=== PATIENT | female | born 1945 | race Caucasian/White ===

== ENCOUNTER 2018-03-12 17:14 | Inpatient (IN) | payer OTHER ==
[~2018-03-12] VITALS: Ht 154.9 cm; Wt 93.9 kg
--- NOTE | ~2018-03-12 | EKG ---
[address] [address] ELECTROCARDIOGRAM REPORT Name: GABRIEL YUSUF Room #: 463- ADM IN M.R.#: [id number] Admission: 03/12/18 Attend Phys: James Cramer MD Discharge: Date of : 49 Report #: [id number] THIS REPORT FOR: //name// [facility] Test Date: 2018-03-13 Test Time: 11:25:03 Pat Name: GABRIEL YUSUF Department: Room: 463 Gender: F Supervisor Communications And Signals: DAHIANA : 1945 Requested By: Dany De La Torre Order Number: [id number] MD: Neo Gould Measurements Intervals [place] Rate: 96 P: UT: QRS: 36 QRSD: 92 T: QT: 475 QTc: 601 Interpretive Statements Atrial fibrillation Borderline low voltage, extremity leads Septal infarct, age indeterminate Nonspecific T abnormalities, lateral leads Prolonged QT interval Compared to ECG 02/01/2015 06:50:36 T-wave abnormality now present Prolonged QT interval now present Electronically Signed On 03-15-2018 8:06:20 CDT by Neo Gould [email or web address] <ELECTRONICALLY SIGNED> By: Neo Gould MD, [facility] 03/15/18 0806 1125 1125 Neo Gould MD, [facility] /EPI
--- NOTE | ~2018-03-12 | O ---
[facility] [place] [address] OPERATIVE REPORT Name: GABRIEL YUSUF Room #: 463-P ADM IN M.R.#: [id number] Admission: 03/12/18 Attend Phys: James Cramer MD Discharge: Date of : 49 Report #: [id number] THIS REPORT FOR: //name// CC: James Addison DATE OF SERVICE: 03/13/2018 SERVICE: Orthopedics. FACILITY: [facility]. SURGEON: Dany De La Torre MD. FOOD CHECKER: Patsy Cloud NP. INDICATION: Fracture reduction assistance and implant positioning assistance. PREOPERATIVE DIAGNOSES: Closed right hip intertrochanteric fracture. POSTOPERATIVE DIAGNOSIS: Closed right hip intertrochanteric fracture. PROCEDURE: IM nail treatment of right intertrochanteric hip fracture. COMPLICATIONS: None. DRAINS: None. SPECIMENS: None. ESTIMATED BLOOD LOSS: 10 mL. IMPLANTS: [employer] 10 x 36 mm InterTan IM nail with 90 interlocking screws proximally. HISTORY: The patient is a 72-year-old female who fell and sustained an intertrochanteric fracture on the right hip. She was admitted to [facility] where she was indicated for surgery. Risks, benefits, alternatives, and indication for surgery were discussed with her in detail preoperatively. Risks include but not limited to pain, bleeding, infection, injury to nerves or blood vessels, malunion, nonunion, need for further surgery including revision as well as complications related to anesthesia such as stroke, heart attack, pulmonary complications, thromboembolic disease and . Despite these risks, she understood the risks with nonsurgical treatment and elected to proceed with surgery. [facility] [address] [place] [address] OPERATIVE REPORT Name: GABRIEL YUSUF Room #: 463-P ADM IN M.R.#: [id number] Admission: 03/12/18 Attend Phys: James Cramer MD Discharge: Date of : 49 Report #: [id number] PROCEDURE IN DETAIL: After right lower extremity was correctly identified as the operative extremity in the preoperative holding area, the patient was taken to the operating room where general endotracheal anesthesia was induced without complication. She was transferred on the fracture table. She was padded appropriately. Prophylactic antibiotics with 3 grams Ancef were administered at appropriate time. Right leg was prepped and draped in standard sterile fashion. Time-out procedure was performed. C-arm had been utilized to assist in the fracture reduction, which was performed by abduction, traction, adduction and internal rotation. An incision was made on the lateral thigh proximal to the trochanter. Dissection was taken down to the tip of the trochanter where a guidepin was placed in freehand technique in the appropriate anterior position localizing on both AP and lateral views. The pin was advanced. I then selected a small diameter entry reamer because she was noted to have a significantly narrow femoral shaft. I was able to sequentially ream up to an 11.5-mm reamer allowing for the 10-mm InterTan nail and then, I used the regular 17-mm channel reamer to obtain access to the proximal femur over the guidewire. X-rays were used to confirm that the guidepin was located within the femoral canal distally and a 36 cm x 10 mm nail was selected was then advanced in a typical fashion into the appropriate level and then, the outrigger was utilized to place the InterTan interlocking screws through the nail into the femoral head. Multiple planes of x-ray were used to ensure that the screws were placed appropriately within the femoral head portion of the fracture while maintaining an appropriate tip apex distance. After this was completed, final x-rays were taken. The final construct was locked. Wounds were thoroughly irrigated after the outrigger was removed. The deep layer was closed with 0 Vicryl suture. Skin was closed with 2-0 Vicryl followed by skin latasha. Sterile dressing was applied. The patient was awakened from anesthesia and taken to recovery room, transferred in stable condition. There were no complications. All counts were recorded as correct. <ELECTRONICALLY SIGNED> By: Dany De La Torre MD 03/13/18 1713 1323 1426 Dany De La Torre MD /nt
[~2018-03-12 17:14] MED LIST: ACETAMINOPHEN325 M1 PO; ALLOPURINOL 30300 M2 PO; ALPRAZOLAM 0.50.5 MG PO; ASPIRIN EC81 M1 PO; ASPIRIN325 PO; AVELOX 400 MG400 M1 PO; C-1000 WITH R1000 MG PO; CALCIUM 600 +1 EAC1 PO; CHLORZOXAZONE500 MG PO; COUMADIN PO; DILTIAZEM 24HR240 M2 PO; DILTIAZEM 24HR240 MG PO; DYAZIDE 37.5-21 EACH PO; FISH OIL 1,001000 M1 PO; FISH OIL 1,001000 M2 PO; FISH OIL 1,2001 EAC4 PO; FOSAMAX 70 MG T70 MG PO; GLUCOSAMINE HC500 MG PO; HYDROCODONE-AP1 EAC6 PO; LANOXIN 0.120.125 M1 PO; LISINOPRIL10 MG PO; LOPERAMIDE 2 MG2 M1 PO; LOPRESSOR100 MG PO; LOPRESSOR25 PO; MOBIC15 MG PO; MUCINEX TA600 MG/TA1 PO; PACERONE 200 M200 M1 PO; PLAVIX 75 MG TA75 MG PO; PRAVACHOL40 MG PO; TROSPIUM CHLORI20 MG PO; VESANOID10 MG; VESICARE10 M1 PO; VITAMIN C + RO500 MG PO; XANAX 0.25 MG0.25 MG PO; XANAX XR0.5 MG PO
[2018-03-12 17:15] VITALS: BP 105/87
[2018-03-12] MEDS ORDERED: ELIQUIS2.5 MG PO (17:17)
[2018-03-12] MEDS ORDERED: ELIQUIS5 MG PO (17:25)
[2018-03-12 18:59] LABS: ABSOLUTE NEUTROPHILS 16.1 thou/uL (1.4-8.2); BASOPHILS 0.3 % (0.0-2.0); EOSINOPHILS 0.2 % (0.0-3.0); HEMATOCRIT 37.7 % (37.0-47.0); HEMOGLOBIN 12.6 gm/dL (12.0-15.0); LYMPHOCYTES 6.5 % (24.0-44.0); MCH 32.3 pg (26.0-34.0); MCHC 33.4 g/dL (28.0-37.0); MCV 96.5 fL (80.0-100.0); MONOCYTES 3.5 % (1.0-8.0); PLATELET COUNT 199 thou/uL (150-400); POLYS 89.5 % (36.0-66.0); RBC 3.91 mil/uL (4.20-5.00); RDW 16.3 % (10.5-14.5)
[2018-03-12] MEDS ORDERED: DEMADEX20 MG PO (19:10)
[2018-03-12 19:13] LABS: APTT 28.5 Seconds (24.5-32.8); INR 1.1; PROTIME 11.4 Seconds (9.3-11.4)
[2018-03-12 19:14] LABS: CALCIUM 9.2 mg/dL (8.5-10.1); CREATININE 1.1 mg/dL (0.6-1.0); POTASSIUM 3.5 mmol/L (3.5-5.1)
[2018-03-12 19:18] LABS: ALBUMIN 3.9 g/dL (3.4-5.0); TOTAL BILIRUBIN 0.7 mg/dL (<0.1-1.0)
[2018-03-12 19:21] VITALS: BP 109/52
[2018-03-12 20:08] VITALS: BP 135/70
[2018-03-13] VITALS (9 sets, daily range): BP systolic 109–136; BP diastolic 44–78
[2018-03-13 06:29] LABS: HEMOGLOBIN 11.4 gm/dL (12.0-15.0); MCHC 34.5 g/dL (28.0-37.0); MCV 95.4 fL (80.0-100.0); RBC 3.45 mil/uL (4.20-5.00); RDW 16.2 % (10.5-14.5); WBC 10.1 thou/uL (4.0-11.0)
[2018-03-13 06:39] LABS: CALCIUM 9.2 mg/dL (8.5-10.1); POTASSIUM 3.3 mmol/L (3.5-5.1)
[2018-03-14 00:04] VITALS: BP 115/55
[2018-03-14 04:46] LABS: CALCIUM 8.5 mg/dL (8.5-10.1); POTASSIUM 3.8 mmol/L (3.5-5.1)
[2018-03-14 04:50] VITALS: BP 124/59
[2018-03-14 05:25] LABS: HEMATOCRIT 27.8 % (37.0-47.0); HEMOGLOBIN 9.5 gm/dL (12.0-15.0); MCH 32.6 pg (26.0-34.0); RBC 2.9 mil/uL (4.20-5.00); RDW 15.9 % (10.5-14.5); WBC 12.9 thou/uL (4.0-11.0)
[2018-03-14 08:30] VITALS: BP 146/80
[2018-03-14 12:15] VITALS: BP 146/80
[2018-03-14 15:15] VITALS: BP 115/60
[2018-03-14 20:10] VITALS: BP 121/58
[2018-03-15 04:30] VITALS: BP 118/75
[2018-03-15 06:25] LABS: HEMATOCRIT 37.7 % (37.0-47.0); MCH 27.5 pg (26.0-34.0); MCHC 31.8 g/dL (28.0-37.0); RBC 4.37 mil/uL (4.20-5.00); RDW 16.4 % (10.5-14.5); WBC 6.2 thou/uL (4.0-11.0)
[2018-03-15 06:45] LABS: CALCIUM 8.9 mg/dL (8.5-10.1); CREATININE 0.9 mg/dL (0.6-1.0); POTASSIUM 4.2 mmol/L (3.5-5.1)
[2018-03-15 06:47] LABS: MCV 86.4 fL (80.0-100.0)
[2018-03-15 08:00] VITALS: BP 117/71
[2018-03-15 16:00] VITALS: BP 95/55
[2018-03-15 16:14] VITALS: BP 117/71
[2018-03-15 20:00] VITALS: BP 103/58
[2018-03-16 04:00] VITALS: BP 119/58
[2018-03-16 06:22] LABS: HEMATOCRIT 26.9 % (37.0-47.0); MCH 32.9 pg (26.0-34.0); MCHC 34.4 g/dL (28.0-37.0); RBC 2.81 mil/uL (4.20-5.00); RDW 16.2 % (10.5-14.5); WBC 10.5 thou/uL (4.0-11.0)
[2018-03-16 06:26] LABS: HEMOGLOBIN 9.2 gm/dL (12.0-15.0)
[2018-03-16 06:27] LABS: MCV 95.5 fL (80.0-100.0)
[2018-03-16 08:25] VITALS: BP 122/66
[2018-03-16 09:59] VITALS: BP 122/66
[2018-03-16] MEDS ORDERED: PACERONE 200 M200 M1 PO (12:40)
[2018-03-16] MEDS ORDERED: XARELTO10 MG PO (12:40)
[2018-03-16] MEDS ORDERED: PERCOCET PO (14:06)
[2018-03-17 06:08] LABS: GLYCOHEMOGLOBIN (HGB A1C) 5.2 % (4.8-5.6)
== END 2018-03-16 16:30 | DRG 480 ==
LOC: ER 17:14 → EROBS 18:06 → 4W 18:06
PROVIDERS: Emergency Medicine; Hospitalist; Nurse Practitioner Family; Orthopaedic Surgery Sports Medicine
PROC: 0QS606Z Reposition Right Upper Femur with Intramedullary Internal Fixation Device, Open Approach (ICD-10-PCS; principal; 2018-03-13)
DX: S72.141A Displaced intertrochanteric fracture of right femur, initial encounter for closed fracture (principal); E43 Unspecified severe protein-calorie malnutrition; D62 Acute posthemorrhagic anemia; Z96.1 Presence of intraocular lens; I73.9 Peripheral vascular disease, unspecified; I50.9 Heart failure, unspecified; I11.0 Hypertensive heart disease with heart failure; E78.5 Hyperlipidemia, unspecified; R26.9 Unspecified abnormalities of gait and mobility; I48.2 Chronic atrial fibrillation; G47.33 Obstructive sleep apnea (adult) (pediatric); R73.9 Hyperglycemia, unspecified; I25.10 Atherosclerotic heart disease of native coronary artery without angina pectoris; E66.9 Obesity, unspecified; W01.0XXA Fall on same level from slipping, tripping and stumbling without subsequent striking against object, initial encounter; I25.2 Old myocardial infarction; Z86.14 Personal history of Methicillin resistant Staphylococcus aureus infection; Z68.39 Body mass index [BMI] 39.0-39.9, adult; Z95.820 Peripheral vascular angioplasty status with implants and grafts; Z87.891 Personal history of nicotine dependence; Z85.828 Personal history of other malignant neoplasm of skin; Z98.42 Cataract extraction status, left eye; Z95.5 Presence of coronary angioplasty implant and graft; Z98.41 Cataract extraction status, right eye; Y93.89 Activity, other specified; Z95.810 Presence of automatic (implantable) cardiac defibrillator; Y92.59 Other trade areas as the place of occurrence of the external cause; Y99.8 Other external cause status; Z79.01 Long term (current) use of anticoagulants; Z79.899 Other long term (current) drug therapy; Z88.2 Allergy status to sulfonamides
CPT/HCPCS: 10040; 50010; 50101; 50386; 51412; 51538; 55445; 56525; 57092; 62110; 62900; 70005

== ENCOUNTER 2018-03-31 11:59 | Inpatient (IN) | payer OTHER ==
[~2018-03-31] VITALS: Ht 154.9 cm; Wt 108.1 kg
--- NOTE | ~2018-03-31 | HC ---
[facility] [place] [address] CONSULTATION Name: GABRIEL YUSUF Room #: 204-P ADM IN M.R.#: [id number] Admission: 03/31/18 Attend Phys: Fay Poon MD Discharge: Date of : 47 Report #: [id number] THIS REPORT FOR: //name// CC: Kody Addison DATE OF SERVICE: 04/01/2018 REASON FOR CONSULTATION: Venous ulcers, bilateral lower extremities. HISTORY OF PRESENT ILLNESS: This is a 72-year-old female patient with a history of diabetes and ulcerations to both lower extremities. She is admitted with increasing shortness of breath and underlying history of congestive heart failure. She states she has had pain in her legs with swelling and the ulcerations, she states she has had ulcerations in the past, but typically she is just getting pain, redness and swelling. PAST MEDICAL HISTORY: Positive for history of atrial fibrillation with a history of rapid ventricular response, closed right hip fracture, congestive heart failure, diabetes, history of a wide complex tachycardia. ALLERGIES: SULFA. MEDICATIONS: Include amiodarone, oxycodone, rivaroxaban, metoprolol, ascorbic acid, alprazolam, loperamide, meloxicam, glucosamine, alendronate, torsemide, aspirin. SOCIAL HISTORY: The patient is a previous smoker, having quit. She admits to occasional alcohol use. FAMILY HISTORY: Noncontributory. REVIEW OF SYSTEMS: CONSTITUTIONAL: The patient does complain of fever and some weakness. Denies weight loss. ENT: The patient denies earache, nasal drainage or sore throat. EYES: The patient denies visual changes, redness or drainage. CARDIOVASCULAR: The patient denies chest pain or palpitations. Does complain of some shortness of breath and some orthopnea. PULMONARY: The patient does complain of shortness of breath, orthopnea. Denies cough or sputum production. GASTROINTESTINAL: The patient denies nausea, vomiting, diarrhea. Genitourinary: The patient denies frequency or urgency of urination. Denies dysuria. ORTHOPEDIC: The patient does note pain and swelling and drainage from her legs. [facility] [address] [place] [address] CONSULTATION Name: GABRIEL YUSUF Room #: 204-P [facility] IN [facility].#: [id number] Admission: 03/31/18 Attend Phys: Fay Poon MD Discharge: Date of : 49 Report #: [id number] PSYCHIATRIC: The patient does complain of some anxiety and depression. Other systems in a 14-point review of systems are negative. PHYSICAL EXAMINATION: VITAL SIGNS: At this time include pulse 117, respiratory rate 20, blood pressure 117/43, temperature 98.1. GENERAL: This is a chronically ill-appearing female patient who appears to be in no distress. HEENT: Head is normocephalic. Nose and throat clear. NECK: Supple. LUNGS: Diminished. HEART: Regular, without murmur. ABDOMEN: Distended, soft, nontender. EXTREMITIES: Lower extremities demonstrate moderate erythema. There is ulceration on the left pretibial region and small areas on the right. She has palpable distal pulses. NEUROLOGIC: The patient is alert and oriented and appropriate. She is sitting upright, talking to a family member, eating [employer]. LABORATORY DATA: Includes sodium 144, potassium is 3.8, CO2 is 27, BUN 31, creatinine 1.0. Glucose 98. Phosphorus 1.9. Lactic acid is 2.3, proBNP is 4645. White blood cell count 10.3 with hemoglobin of 8.0. CLINICAL IMPRESSION: 1. Venous type ulcerations, bilateral lower extremities, left greater than right. 2. Bilateral lower extremity due to volume overload and history of congestive heart failure and some venous stasis dermatitis. 3. History of congestive heart failure. 4. Diabetes mellitus. RECOMMENDATIONS: At this point in time, we will recommend topical Silvadene, morphine compound with Xeroform gauze, Kerlix and Nico wrap for mild compression. I would think that her consumption of barbecue is probably counterproductive with regard to her underlying congestive heart failure and lower extremity edema. We will recommend elevation of the lower extremities as well. Appropriate nutritional support, likely a low sodium diet would be to her benefit. I appreciate being asked to see her in consultation. <ELECTRONICALLY SIGNED> By: Herman Nicholson MD 04/02/18 1552 2131 0315 Herman Nicholson MD /nt
--- NOTE | ~2018-03-31 | PATH ---
[facility] [address] [place] [address] PATHOLOGY RPT PROCEDURE Name: DEANNA YUSUF Room #: 204-P DIS IN M.R.#: [id number] Admission: 03/31/18 Date of : 49 Discharge: 04/08/18 Report #: [id number] Path Case #: [id number] [facility] Accession Number: [id number] . 01 Material submitted: . GASTRITIS R/O H PYLORI . 01 Clinical history: . Pre-OP DX: GI bleed, anemia, dysphagia Post-OP DX: Gastritis, dysphagia, gastroparesis . 02 Diagnosis: Gastric mucosa, gastritis, rule out H. pylori, endoscopic biopsy: - Moderate reactive gastropathy with focal intestinal metaplasia. - Negative for atrophy or dysplasia. - Negative for Helicobacter pylori (properly-controlled immunohistochemical stain performed). . (IUV:mml; 04/07/18) [facility]/04/07/2018 . 02 Electronically signed: . Aide Grande MD, Pathologist NPI- [id number] . 01 Gross description: . Received in formalin labeled "Yusuf, Deanna, gastritis, rule out H. pylori," are 5 segments of mcnamara soft tissue measuring 0.9 x 0.8 x 0.2 cm in aggregate dimensions and ranging from 0.2 to 0.5 cm in maximum dimension. The specimen is submitted entirely in cassette A1. (TSD; 04/06/2018) TOB/TOB . 02 Pathologist provided ICD-10: K31.9 . 02 CPT . 215975, H47918 Performed at: [address], [place] [id number] MD Raúl Duncan MD Phone: [phone] Performed at: [address] [id number] MD Aide Grande MD Phone: [phone]
--- NOTE | ~2018-03-31 | 2DMMODE ---
[facility] [address] [address] 2 D/M-MODE ECHOCARDIOGRAM Name: MADELINGABRIEL GAN Room #: 204-P ADM IN M.R.#: [id number] Admission: 03/31/18 Attend Phys: Fay Poon MD Discharge: Date of : 49 Date of Service: 04/01/18 1550 Report #: [id number] THIS REPORT FOR: //name// APPROVED REPORT Study performed: 04/01/2018 10:32:51 EXAM: Limited 2D, Doppler, and color-flow Echocardiogram Patient Location: Echo lab Room #: 204 Status: routine BSA: 2.03 HR: 113 bpm BP: 127/67 mmHg Rhythm: Atrial Fibrillation Other Information Study Quality: Adequate Indications Congestive Heart Failure Atrial Fibrillation 2D Dimensions IVC: 28.00 mm Aortic Valve AoV Peak Nabor.: 1.69 m/s AO Peak Gr.: 11.46 mmHg LVOT Max P.41 mmHg LVOT Max V: 1.16 m/s Tricuspid Valve TR Peak Nabor.: 2.93 m/s RAP Estimate: 15.00 mmHg TR Peak Gr.: 34.23 mmHg PA Pressure: 49.00 mmHg Left Ventricle The left ventricle is normal size. Left ventricular systolic function is mildly decreased. LVEF is 45-50%. Right Ventricle The right ventricle is normal size. The right ventricular systolic function is normal. Atria Left atrium is dilated. The right atrium size is normal. [facility] [address] [place] [address] 2 D/M-MODE ECHOCARDIOGRAM Name: GABRIEL YUSUF Room #: 204-P ADM IN M.R.#: [id number] Admission: 03/31/18 Attend Phys: Fay Poon MD Discharge: Date of : 49 Date of Service: 04/01/18 1550 Report #: [id number] Aortic Valve The aortic valve is mildly calcified Trace aortic regurgitation. There is no aortic valvular stenosis. Mitral Valve Mitral valve leaflets are thickened. Mild mitral annular calcification. Moderate mitral regurgitation. Tricuspid Valve The tricuspid valve is normal in structure. Moderate tricuspid regurgitation. Estimated PAP of 50 mmHg Pulmonic Valve The pulmonary valve is normal in structure. There is no pulmonic valvular regurgitation. Great Vessels IVC is dilated and collapses <50% with inspiration. Pericardium No pericardial effusion. <Conclusion> Limited/abbreviated study Left ventricular systolic function is mildly decreased. LVEF is 45-50%. Left atrium is dilated. The aortic valve is mildly calcified. No aortic valvular stenosis, mild insufficiency. Mitral valve leaflets are thickened. Mild mitral annular calcification. Moderate mitral insufficiency Moderate tricuspid regurgitation. Estimated pulmonary artery pressure of 50 mmHg No pericardial effusion. <ELECTRONICALLY SIGNED> By: Neo Gould MD, [facility] 04/01/18 1550 1550 1550 Neo Gould MD, [facility] /INF
--- NOTE | ~2018-03-31 | P ---
[facility] [place] [address] PROCEDURE REPORT Name: GABRIEL YUSUF Room #: 204-P [facility] IN M.R.#: [id number] Admission: 03/31/18 Attend Phys: Fay Poon MD Discharge: 04/08/18 Date of : 47 Report #: [id number] THIS REPORT FOR: //name// CC: ENID Santana BRIEF HISTORY: The patient is a 72-year-old woman with multiple medical problems including diabetes and atrial fibrillation on blood thinners, who presented with multiple complaints including melanotic stools and anemia with a hemoglobin in the 7 range and normal MCV. It is noted she did have recent surgery for hip. In addition, she also has a history of dysphagia with previous dilation reports, dysphagia once. PREOPERATIVE DIAGNOSES: 1. Melena. 2. Dysphagia. POSTOPERATIVE DIAGNOSES: 1. Moderate diffuse gastritis without evidence of hemorrhage. 2. Dysphagia without obvious ring or stricture identified. 3. Small amount of retained solid consistent with gastroparesis. MEDICATION: Deep sedation with propofol per anesthesia. SPECIMEN: Biopsies of gastritis. ESTIMATED BLOOD LOSS: 3 mL. PROCEDURE: EGD with biopsy and Lopez dilation. FINDINGS: Prior to propofol sedation, the procedure of upper endoscopy was discussed with the patient as well as potential risks and its complications. She indicates she understands and desires to proceed. DESCRIPTION OF PROCEDURE: With the patient in lateral decubitus position, the Olympus video endoscope was inserted in the cervical esophagus under direct vision without difficulty. Examination of this organ to its entire length revealed normal esophageal mucosa down to the squamocolumnar junction. The squamocolumnar junction was inspected and noted to be unremarkable. There was no evidence of ulcers, erosions, bleeding lesions, or significant hiatus hernia. Also, varices were not seen. The scope was advanced in the stomach, was examined on end view as well as retroflexed views. Upon entering the stomach, she was noted to have some retained vegetable type material in the fundus of the [facility] [address] [place] [address] PROCEDURE REPORT Name: GABRIEL YUSUF Room #: 204-P [facility] IN M.R.#: [id number] Admission: 03/31/18 Attend Phys: Fay Poon MD Discharge: 04/08/18 Date of : 49 Report #: [id number] stomach. It was a relatively small amount. On end view as well as retroflexed views, there was noted to be gastritis with linear striations ____ in the antrum. However, no ulcers or erosions were seen. No blood was seen. No bleeding lesions were seen. Upon retroflexion, no mass lesions were seen. The pylorus was normal. Duodenal bulb was normal. Duodenal sweep down to ligament of Treitz was normal. There was no evidence of bleeding lesions or arteriovenous malformations. At that point, the scope was slowly withdrawn and careful circumferential views confirmed the above findings. The patient tolerated the procedure well. DISPOSITION: The patient with recent black stools and anemia without evidence of actively bleeding lesion. She had been on Pradaxa and is now off of the Pradaxa. I do not see a source for gastrointestinal bleeding. As for her anemia, it is noted that she did have a recent hip surgery, which certainly may be a factor. It is noted she did have two stool Hemoccults one of which was positive, one of which was negative. At this point in time, we would continue PPI. It would probably reasonable to continue PPI. Consider resuming anticoagulation. If there is evidence of further bleeding, she may require further evaluation such as bleeding scan or even small bowel capsule study or repeat colonoscopy. <ELECTRONICALLY SIGNED> By: Ovidio Worthington MD 04/09/18 1740 1217 0405 Ovidio Worthington MD /nt
--- NOTE | ~2018-03-31 | HC ---
[facility] [place] [address] CONSULTATION Name: GABRIEL YUSUF Room #: 204-P ADM IN M.R.#: [id number] Admission: 03/31/18 Attend Phys: Fay Poon MD Discharge: Date of : 49 Report #: [id number] THIS REPORT FOR: //name// CC: Kody Addison TYPE OF REPORT: Pulmonary consultation. REFERRAL PHYSICIAN: Fay Poon M.D. PRIMARY CARE PHYSICIAN: Brittany Argueta M.D. HISTORY OF PRESENT ILLNESS: The patient is a 72-year-old white female who presents to the Emergency Room with progressive dyspnea. She is felt in heart failure. There is also concerns for amiodarone toxicity. A pulmonary consultation was requested. The patient has coronary artery disease with ischemic cardiomyopathy, permanent atrial fibrillation, hypertension and hyperlipidemia. Recently, she fell and sustained a right femur fracture. Few weeks ago, she underwent surgery. For the past 2 weeks, she has been at a facility to gain rehabilitation. She was doing fairly well until 3 days prior to presentation when she had noticed increasing dyspnea. Symptoms worsened along with hypoxia. Saturation was said to be as low as 77%. For that reason, she was brought to the Emergency Room. Her chest x-ray shows mild patchy infiltrates. CT chest angiogram showed no evidence of pulmonary embolus. There was moderate multiple patchy ground glass opacity. The patient otherwise denies any recent febrile illness, chest pain or hemoptysis. She has been on anticoagulation for atrial fibrillation. Hemoglobin currently is 7.1. She also notes increasing lower extremity edema. PAST MEDICAL HISTORY: As mentioned above including coronary artery disease, ischemic cardiomyopathy, permanent atrial fibrillation on chronic anticoagulation, SEYMOUR on CPAP, mild mitral regurgitation, essential hypertension, gout, peripheral artery disease, status post left external iliac artery stent, right femoral stent and mild pulmonary hypertension. PAST SURGICAL HISTORY: As mentioned above. ALLERGIES: SULFA, reactions not specified. HOME MEDICATIONS: List reviewed. This includes torsemide, aspirin, amiodarone [facility] [address] [place] [address] CONSULTATION Name: GABRIEL YUSUF Room #: 204- ADM IN .R.#: [id number] Admission: 03/31/18 Attend Phys: Fay Poon MD Discharge: Date of : 49 Report #: [id number] 200 mg p.o. every day, Pravachol, calcium supplements, Fosamax, glucosamine, Mobic, Imodium, Tylenol, alprazolam and metoprolol. FAMILY HISTORY: Noncontributory. SOCIAL HISTORY: The patient has smoked for many years but quit in 1995. She drinks socially. REVIEW OF SYSTEMS: As mentioned above, otherwise 10-point system review negative. PHYSICAL EXAMINATION: GENERAL: She is awake, alert, in mild distress. She appears mildly dyspneic. VITAL SIGNS: Temperature is 98 degrees Fahrenheit, pulse is 99, respiratory rate is 22, blood pressure is 124/60 mmHg and saturation 96%. HEENT: Normocephalic and atraumatic. NECK: Supple, without lymphadenopathy or thyromegaly. CHEST: Breath sounds are good with few scattered crackles. No wheezes. CARDIOVASCULAR: Irregularly irregular. No murmurs or gallop. Pulses are 2+/4+ bilaterally. ABDOMEN: Soft and nontender. Moderately obese. No masses felt. GENITOURINARY: Deferred. RECTAL: Deferred. EXTREMITIES: A 1-2+ bilateral edema. NEUROLOGICAL: Grossly intact. RADIOLOGICAL DATA: Portable chest x-ray mentioned above. CT chest also as mentioned above showing patchy moderate bilateral ground glass opacities. Cardiomegaly is present. No pulmonary embolus. Echocardiogram showed mildly decreased LV function, ejection fraction 45%, left atrium is dilated, aortic valve mildly calcified, moderate mitral insufficiency, pulmonary artery pressure of 50 mmHg. LABORATORY DATA: BNP is 5000. Lactic acid is 2.3. Procalcitonin 0.99. Smooth muscle antibody was normal. Hepatitis B antibody, so far negative. Electrolytes are normal, creatinine is normal. Creatinine on admission was 1.2. Albumin 2.2. WBC 8600 and hemoglobin is 8.0. Arterial blood gas revealed pH 7.52, pCO2 of 29 and pO2 75 on 5 liters of O2. IMPRESSION: 1. Bilateral patchy infiltrates in this 72-year-old white female. The radiographic appearance on the CT chest likely suggests inflammatory process. Cannot rule out component of heart failure. 2. 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 Radiographic findings along with elevated liver enzymes are suspicious. The patient's amiodarone dose has been lowered to 200 mg. Amiodarone has since been discontinued. [address] [address] CONSULTATION Name: MADELINGABRIELEdvin GAN Room #: 204-P ADM IN M.R.#: [id number] Admission: 03/31/18 Attend Phys: Fay Poon MD Discharge: Date of : 49 Report #: [id number] 3. [id number]-xi-tuxgcnt systolic heart failure. 4. Coronary artery disease. 5. Ischemic cardiomyopathy, ejection fraction 45%. 6. Permanent atrial fibrillation, anticoagulation on hold due to anemia, possible blood loss. 7. Recent right femur fracture, status post surgery. Deep venous thrombosis prophylaxis will be indicated once hemoglobin is stable and no evidence of bleeding. 8. Peripheral artery disease, status post stent placement. 9. Lower extremity wounds due to trauma, currently undergoing wound care. 10. Elevated liver enzymes as mentioned above. GI has been consulted. RECOMMENDATIONS AND DISCUSSION: Agree with plans with diuresis. We will consider proceeding with diagnostic bronchoscopy if the patient does not progress with diuresis or radiograph shows worsening. We discussed the possibility of corticosteroid treatment and possible amiodarone-induced lung toxicity. At this time, she is quite hesitant and wishes deferred treatment. Continue CPAP therapy for SEYMOUR. We would recommend DVT prophylaxis given recent orthopedic surgery. Thank you for the consultation. <ELECTRONICALLY SIGNED> By: James Viera MD 04/03/18 1539 1534 0153 James Viera MD /nt
--- NOTE | ~2018-03-31 | EKG ---
[address] [place] [address] ELECTROCARDIOGRAM REPORT Name: GABRIEL YUSUF Room #: 204-P ADM IN M.R.#: [id number] Admission: 03/31/18 Attend Phys: Fay Poon MD Discharge: Date of : 49 Report #: [id number] THIS REPORT FOR: //name// [facility] ED Test Date: 2018-03-31 Test Time: 12:43:03 Pat Name: GABRIEL YUSUF Department: Room: 204 Gender: F Real Estate Listing Consultant: RENZO : 1945 Requested By: Rachel Nixon Order Number: [id number] MD: Neo Gould Measurements Intervals [place] Rate: 114 P: ME: QRS: 11 QRSD: 76 T: QT: 411 QTc: 567 Interpretive Statements Atrial fibrillation Nonspecific T wave abnormality Prolonged QT interval Compared to ECG 03/13/2018 11:25:03 No significant change was found Electronically Signed On 04-01-2018 16:44:29 CDT by Neo Gould [email or web address] <ELECTRONICALLY SIGNED> By: Neo Gould MD, [facility] 04/01/18 1644 1243 124 Neo Gould MD, [facility] /EPI
[~2018-03-31 11:59] MED LIST changes: +DEMADEX20 MG PO; +ELIQUIS2.5 MG PO; +ELIQUIS5 MG PO; +PERCOCET PO; +XARELTO10 MG PO
[2018-03-31 12:01] VITALS: BP 103/56
[2018-03-31 12:21] LABS: ABSOLUTE NEUTROPHILS 8.9 thou/uL (1.4-8.2); BASOPHILS 0.2 % (0.0-2.0); EOSINOPHILS 1.1 % (0.0-3.0); HEMATOCRIT 21.5 % (37.0-47.0); HEMOGLOBIN 7.1 gm/dL (12.0-15.0); LYMPHOCYTES 19.3 % (24.0-44.0); MCH 31.8 pg (26.0-34.0); MCHC 33.2 g/dL (28.0-37.0); MONOCYTES 4.8 % (1.0-8.0); PLATELET COUNT 238 thou/uL (150-400); POLYS 74.6 % (36.0-66.0); RBC 2.24 mil/uL (4.20-5.00); RDW 17.8 % (10.5-14.5); WBC 11.9 thou/uL (4.0-11.0)
[2018-03-31 12:25] LABS: BE(vivo) 1.2 mmol/L (-2 to +3); HCO3 23.8 mmol/L (22.0-26.0); PCO2 29.6 mmHg (35.0-45.0); pH 7.524 (7.360-7.450); sO2 96.5 % (92.0-98.0)
[2018-03-31 12:30] LABS: ANION GAP 9 mmol/L (7-16); BUN 37 mg/dL (7-18); CHLORIDE 105 mmol/L (98-107); CO2 27 mmol/L (21-32); CREATININE 1.2 mg/dL (0.6-1.0); GLUCOSE 117 mg/dL (74-106); SODIUM 141 mmol/L (136-145)
[2018-03-31 12:42] LABS: TROPONIN-I <0.06 ng/mL (<0.06)
[2018-03-31] MEDS ORDERED: ASPIR 8181 MG PO (13:54)
[2018-03-31 14:02] VITALS: BP 116/54
[2018-03-31 14:05] LABS: URINE BILIRUBIN NEGATIVE (Negative); URINE BLOOD 1+ (Negative); URINE CLARITY CLEAR; URINE COLOR YELLOW; URINE GLUCOSE-RANDOM* NEGATIVE (Negative); URINE KETONES NEGATIVE (Negative); URINE NITRITE-REFLEX NEGATIVE (Negative); URINE PROTEIN (DIPSTICK) NEGATIVE (Negative); URINE SPECIFIC GRAVITY <= 1.005 (1.005-1.035); URINE UROBILINOGEN 0.2 E.U./dl (0.2-1.0)
[2018-03-31 14:06] LABS: URINE LEUKOCYTES-REFLEX 1+ (Negative)
[2018-03-31 14:24] LABS: BACTERIA-REFLEX None Seen /HPF (None Seen); CASTS None Seen /LPF (None Seen); CRYSTALS None Seen /LPF (None Seen); SQUAMOUS >10 Many /LPF (0-3); URINE RBC 3-10 Few /HPF (0-2)
[2018-03-31 15:02] VITALS: BP 122/67
[2018-03-31 15:40] VITALS: BP 127/68
[2018-03-31 18:26] LABS: INR 1.3; PROTIME 12.9 Seconds (9.3-11.4)
[2018-03-31 18:30] LABS: % SATURATION 11 % (20-39); IRON 24 ug/dL (50-170); TIBC 211 ug/dL (250-450)
[2018-03-31 18:33] LABS: ALBUMIN 2.3 g/dL (3.4-5.0); DIRECT BILIRUBIN 0.5 mg/dL (<0.1-0.3); MAGNESIUM 1.9 mg/dL (1.8-2.4); TOTAL BILIRUBIN 1.1 mg/dL (<0.1-1.0); TOTAL PROTEIN 6.6 g/dL (6.4-8.2)
[2018-03-31 21:00] VITALS: BP 123/45; BP 135/74
[2018-04-01 00:43] VITALS: BP 124/70
[2018-04-01 03:11] LABS: HAV IgM AB (ANTI-HAV IgM) Negative (Negative); HEPATITIS B SURFACE AG Negative (Negative); HEPATITIS C VIRUS AB <0.1 (0.0-0.9)
[2018-04-01 03:59] LABS: ABSOLUTE NEUTROPHILS 7.7 thou/uL (1.4-8.2); BASOPHILS 0.3 % (0.0-2.0); EOSINOPHILS 1.4 % (0.0-3.0); HEMATOCRIT 24.9 % (37.0-47.0); LYMPHOCYTES 16.7 % (24.0-44.0); MCH 30.6 pg (26.0-34.0); MCHC 32.3 g/dL (28.0-37.0); MCV 94.9 fL (80.0-100.0); MONOCYTES 6.5 % (1.0-8.0); PLATELET COUNT 249 thou/uL (150-400); POLYS 75.1 % (36.0-66.0); RBC 2.63 mil/uL (4.20-5.00); RDW 18.7 % (10.5-14.5); WBC 10.3 thou/uL (4.0-11.0)
[2018-04-01 04:03] LABS: CALCIUM 8.2 mg/dL (8.5-10.1); MAGNESIUM 2.3 mg/dL (1.8-2.4); POTASSIUM 3.8 mmol/L (3.5-5.1)
[2018-04-01 04:15] VITALS: BP 127/67
[2018-04-01 06:49] LABS: ALBUMIN 2.4 g/dL (3.4-5.0); DIRECT BILIRUBIN 0.7 mg/dL (<0.1-0.3); TOTAL BILIRUBIN 1.4 mg/dL (<0.1-1.0)
[2018-04-01 08:12] LABS: IgG 643 mg/dL (700-1600)
[2018-04-01 09:59] LABS: INR 1.2; PROTIME 12.5 Seconds (9.3-11.4)
[2018-04-01 15:16] VITALS: BP 105/75
[2018-04-01 19:32] VITALS: BP 117/43
[2018-04-02 03:45] VITALS: BP 130/64
[2018-04-02 04:53] LABS: INR 1.2; PROTIME 12.2 Seconds (9.3-11.4)
[2018-04-02 05:11] LABS: CALCIUM 8.1 mg/dL (8.5-10.1); CREATININE 1.1 mg/dL (0.6-1.0); POTASSIUM 3.8 mmol/L (3.5-5.1)
[2018-04-02 05:20] LABS: ALBUMIN 2.2 g/dL (3.4-5.0); DIRECT BILIRUBIN 0.5 mg/dL (<0.1-0.3); TOTAL PROTEIN 6.4 g/dL (6.4-8.2)
[2018-04-02 05:41] LABS: HEMATOCRIT 24.4 % (37.0-47.0); MCH 31.1 pg (26.0-34.0); MCHC 32.8 g/dL (28.0-37.0); MCV 94.9 fL (80.0-100.0); RBC 2.57 mil/uL (4.20-5.00); RDW 18.9 % (10.5-14.5); WBC 8.6 thou/uL (4.0-11.0)
[2018-04-02 08:56] VITALS: BP 133/67
[2018-04-02 12:23] VITALS: BP 124/68
[2018-04-02 13:10] LABS: ANA INTERPRETATION Negative (Negative)
[2018-04-02 14:48] VITALS: BP 124/68
[2018-04-02 15:49] VITALS: BP 136/51
[2018-04-02 20:11] VITALS: BP 131/56
[2018-04-03 03:37] VITALS: BP 134/60; BP 173/69
[2018-04-03 05:10] LABS: HEMATOCRIT 24.1 % (37.0-47.0); HEMOGLOBIN 7.9 gm/dL (12.0-15.0); MCHC 32.8 g/dL (28.0-37.0); MCV 94.5 fL (80.0-100.0); RBC 2.55 mil/uL (4.20-5.00); RDW 18.9 % (10.5-14.5); WBC 7.5 thou/uL (4.0-11.0)
[2018-04-03 05:29] LABS: ALBUMIN 2.1 g/dL (3.4-5.0); CALCIUM 8.2 mg/dL (8.5-10.1); CREATININE 1.1 mg/dL (0.6-1.0); MAGNESIUM 2.4 mg/dL (1.8-2.4); POTASSIUM 3.5 mmol/L (3.5-5.1); TOTAL PROTEIN 6.2 g/dL (6.4-8.2)
[2018-04-03 08:10] VITALS: BP 117/62
[2018-04-03 12:13] VITALS: BP 131/54
[2018-04-03 15:11] VITALS: BP 131/54
[2018-04-03 16:07] VITALS: BP 116/46
[2018-04-03 19:57] VITALS: BP 123/58
[2018-04-04 04:30] VITALS: BP 134/75
[2018-04-04 04:49] LABS: HEMATOCRIT 25.9 % (37.0-47.0); HEMOGLOBIN 8.4 gm/dL (12.0-15.0); MCH 30.8 pg (26.0-34.0); MCHC 32.5 g/dL (28.0-37.0); MCV 94.8 fL (80.0-100.0); RBC 2.73 mil/uL (4.20-5.00); RDW 18.2 % (10.5-14.5); WBC 5.7 thou/uL (4.0-11.0)
[2018-04-04 05:00] LABS: CALCIUM 8.7 mg/dL (8.5-10.1); CREATININE 1.1 mg/dL (0.6-1.0); POTASSIUM 3.8 mmol/L (3.5-5.1)
[2018-04-04 07:54] VITALS: BP 121/56
[2018-04-04 11:43] VITALS: BP 124/48
[2018-04-04 13:46] LABS: ALBUMIN 2.3 g/dL (3.4-5.0); DIRECT BILIRUBIN 0.3 mg/dL (<0.1-0.3); TOTAL BILIRUBIN 0.6 mg/dL (<0.1-1.0); TOTAL PROTEIN 6.7 g/dL (6.4-8.2)
[2018-04-04 16:16] VITALS: BP 110/43
[2018-04-04 20:00] VITALS: BP 114/91
[2018-04-05] VITALS: BP 135/72
[2018-04-05 04:00] VITALS: BP 147/76
[2018-04-05 04:11] LABS: HEMATOCRIT 25.8 % (37.0-47.0); HEMOGLOBIN 8.3 gm/dL (12.0-15.0); MCH 30.1 pg (26.0-34.0); MCHC 32.1 g/dL (28.0-37.0); MCV 93.9 fL (80.0-100.0); RBC 2.74 mil/uL (4.20-5.00); RDW 18.6 % (10.5-14.5); WBC 11.2 thou/uL (4.0-11.0)
[2018-04-05 04:23] LABS: CALCIUM 9.2 mg/dL (8.5-10.1); CREATININE 1.2 mg/dL (0.6-1.0); POTASSIUM 3.6 mmol/L (3.5-5.1)
[2018-04-05 04:29] LABS: ALBUMIN 2.3 g/dL (3.4-5.0); DIRECT BILIRUBIN 0.3 mg/dL (<0.1-0.3); TOTAL BILIRUBIN 0.6 mg/dL (<0.1-1.0); TOTAL PROTEIN 6.5 g/dL (6.4-8.2)
[2018-04-05 07:53] VITALS: BP 127/69
[2018-04-05 11:32] VITALS: BP 127/59
[2018-04-05 16:08] VITALS: BP 136/61
[2018-04-05 20:12] VITALS: BP 126/62
[2018-04-06 04:43] LABS: ABSOLUTE NEUTROPHILS 8.7 thou/uL (1.4-8.2); BASOPHILS 0.2 % (0.0-2.0); HEMATOCRIT 26.5 % (37.0-47.0); HEMOGLOBIN 8.6 gm/dL (12.0-15.0); LYMPHOCYTES 7.2 % (24.0-44.0); MCH 30.4 pg (26.0-34.0); MCHC 32.5 g/dL (28.0-37.0); MCV 93.6 fL (80.0-100.0); MONOCYTES 2.4 % (1.0-8.0); PLATELET COUNT 263 thou/uL (150-400); POLYS 90.2 % (36.0-66.0); RBC 2.83 mil/uL (4.20-5.00); RDW 18.2 % (10.5-14.5); WBC 9.7 thou/uL (4.0-11.0)
[2018-04-06 04:45] VITALS: BP 147/69
[2018-04-06 05:01] LABS: CALCIUM 9.2 mg/dL (8.5-10.1); CREATININE 1.2 mg/dL (0.6-1.0); POTASSIUM 3.8 mmol/L (3.5-5.1)
[2018-04-06 05:16] LABS: ALBUMIN 2.5 g/dL (3.4-5.0); DIRECT BILIRUBIN 0.3 mg/dL (<0.1-0.3); TOTAL BILIRUBIN 0.5 mg/dL (<0.1-1.0); TOTAL PROTEIN 6.8 g/dL (6.4-8.2)
[2018-04-06 07:49] VITALS: BP 139/81
[2018-04-06 13:00] VITALS: BP 131/70
[2018-04-06 20:45] VITALS: BP 132/72
[2018-04-07 04:35] VITALS: BP 130/59
[2018-04-07 05:24] LABS: HEMATOCRIT 26.3 % (37.0-47.0); HEMOGLOBIN 8.7 gm/dL (12.0-15.0); MCHC 32.8 g/dL (28.0-37.0); MCV 94.3 fL (80.0-100.0); RBC 2.79 mil/uL (4.20-5.00); RDW 18.1 % (10.5-14.5)
[2018-04-07 05:47] LABS: ALBUMIN 2.5 g/dL (3.4-5.0); CALCIUM 8.7 mg/dL (8.5-10.1); CREATININE 1.3 mg/dL (0.6-1.0); PHOSPHORUS 4.1 mg/dL (2.5-4.9); POTASSIUM 3.3 mmol/L (3.5-5.1)
[2018-04-07 07:20] VITALS: BP 129/55
[2018-04-07 13:15] VITALS: BP 127/69
[2018-04-07 15:45] VITALS: BP 129/58
[2018-04-08 03:55] VITALS: BP 144/81
[2018-04-08 04:01] LABS: ALBUMIN 2.6 g/dL (3.4-5.0); CALCIUM 8.6 mg/dL (8.5-10.1); CREATININE 1.3 mg/dL (0.6-1.0); PHOSPHORUS 4.6 mg/dL (2.5-4.9); POTASSIUM 3.4 mmol/L (3.5-5.1)
[2018-04-08 04:04] LABS: ALBUMIN 2.6 g/dL (3.4-5.0); DIRECT BILIRUBIN 0.3 mg/dL (<0.1-0.3); TOTAL BILIRUBIN 0.6 mg/dL (<0.1-1.0); TOTAL PROTEIN 6.2 g/dL (6.4-8.2)
[2018-04-08 04:08] LABS: HEMATOCRIT 27.3 % (37.0-47.0); HEMOGLOBIN 8.9 gm/dL (12.0-15.0); MCH 30.9 pg (26.0-34.0); MCHC 32.8 g/dL (28.0-37.0); MCV 94.1 fL (80.0-100.0); RBC 2.9 mil/uL (4.20-5.00); RDW 18.4 % (10.5-14.5); WBC 9.1 thou/uL (4.0-11.0)
[2018-04-08] MEDS ORDERED: LOPRESSOR50 PO (08:38)
[2018-04-08] MEDS ORDERED: CARDIZEM CD 18180 M3 PO (08:38)
[2018-04-08] MEDS ORDERED: CEFUROXIME250 MG PO (08:38)
[2018-04-08] MEDS ORDERED: DEMADEX 2020 MG/1 TA PO (08:38)
[2018-04-08] MEDS ORDERED: PREDNISONE 20 M20 M1 PO (08:39)
[2018-04-08] MEDS ORDERED: NOVOLOG100 UNIT/1 SUBQ (08:39)
[2018-04-08] MEDS ORDERED: COLACE 100 MG100 MG PO (08:39)
[2018-04-08] MEDS ORDERED: XARELTO15 MG PO ×2 (08:40→08:41)
[2018-04-08 08:41] VITALS: BP 122/69
[2018-04-08 09:06] VITALS: BP 122/69
== END 2018-04-08 14:00 | DRG 871 ==
LOC: ER 11:59 → 2N 13:41 → EROBS 13:41 → 2N 14:43 → ENTRNSPT 04-08 13:29 → EDTRNSPTSTS 04-08 13:49 → 2N 04-08 14:00
PROVIDERS: Emergency Medicine; Hospitalist; Internal Medicine; Internal Medicine Gastroenterology; Internal Medicine Geriatric Medicine; Internal Medicine Pulmonary Disease; Nurse Practitioner; Nurse Practitioner Family
PROC: 0DB68ZX Excision of Stomach, Via Natural or Artificial Opening Endoscopic, Diagnostic (ICD-10-PCS; principal; 2018-04-06)
DX: A41.9 Sepsis, unspecified organism (principal); J96.01 Acute respiratory failure with hypoxia; I50.23 Acute on chronic systolic (congestive) heart failure; N39.0 Urinary tract infection, site not specified; N17.9 Acute kidney failure, unspecified; K62.5 Hemorrhage of anus and rectum; L97.829 Non-pressure chronic ulcer of other part of left lower leg with unspecified severity; L97.819 Non-pressure chronic ulcer of other part of right lower leg with unspecified severity; E46 Unspecified protein-calorie malnutrition; Z68.42 Body mass index [BMI] 45.0-49.9, adult; I13.0 Hypertensive heart and chronic kidney disease with heart failure and stage 1 through stage 4 chronic kidney disease, or unspecified chronic kidney disease; I48.91 Unspecified atrial fibrillation; I25.5 Ischemic cardiomyopathy; E78.5 Hyperlipidemia, unspecified; I87.8 Other specified disorders of veins; R26.9 Unspecified abnormalities of gait and mobility; K81.1 Chronic cholecystitis; K76.0 Fatty (change of) liver, not elsewhere classified; N18.9 Chronic kidney disease, unspecified; I27.20 Pulmonary hypertension, unspecified; M10.9 Gout, unspecified; G47.33 Obstructive sleep apnea (adult) (pediatric); K59.00 Constipation, unspecified; E11.43 Type 2 diabetes mellitus with diabetic autonomic (poly)neuropathy; K31.84 Gastroparesis; K29.70 Gastritis, unspecified, without bleeding; I73.9 Peripheral vascular disease, unspecified; E87.6 Hypokalemia; R23.3 Spontaneous ecchymoses; E66.9 Obesity, unspecified; I25.10 Atherosclerotic heart disease of native coronary artery without angina pectoris; I25.2 Old myocardial infarction; Z95.810 Presence of automatic (implantable) cardiac defibrillator; Z86.14 Personal history of Methicillin resistant Staphylococcus aureus infection; Z95.820 Peripheral vascular angioplasty status with implants and grafts; Z87.81 Personal history of (healed) traumatic fracture; Z87.891 Personal history of nicotine dependence; Z85.828 Personal history of other malignant neoplasm of skin; Z98.42 Cataract extraction status, left eye; Z98.41 Cataract extraction status, right eye; Z79.82 Long term (current) use of aspirin; Z79.899 Other long term (current) drug therapy; Z88.2 Allergy status to sulfonamides
CPT/HCPCS: 10194; 62110; 62900; 70005

== ENCOUNTER 2018-05-26 14:37 | Emergency (ER) | payer OTHER ==
[~2018-05-26] VITALS: Ht 154.9 cm; Wt 92.1 kg
--- NOTE | ~2018-05-26 | EKG ---
[address] [employer] [place] [address] ELECTROCARDIOGRAM REPORT Name: GABRIEL YUSUF Room #: 170-1 ADM IN M.R.#: [id number] Admission: 05/26/18 Attend Phys: Arya Grady MD, Discharge: Date of : 49 Report #: [id number] THIS REPORT FOR: //name// [facility] ED Test Date: 2018-05-26 Test Time: 14:49:50 Pat Name: GABRIEL YUSUF Department: Room: 170 Gender: F Lead Caster: ZAG : 1945 Requested By: Semaj Mina Order Number: [id number] MD: Neo Gould Measurements Intervals [place] Rate: 87 P: 0 OK: 167 QRS: 25 QRSD: 114 T: 65 QT: 437 QTc: 526 Interpretive Statements Atrial fibrillation Low voltage, extremity leads Prolonged QT interval Compared to ECG 03/31/2018 12:43:03 No significant change was found Electronically Signed On 05-26-2018 17:18:42 CDT by Neo Gould [email or web address] <ELECTRONICALLY SIGNED> By: Neo Gould MD, FAC 05/26/18 1718 1449 1449 Neo Gould MD, [facility] /EPI
--- NOTE | ~2018-05-26 | HC ---
[facility] [place] [address] CONSULTATION Name: GABRIEL YUSUF Room #: DEP Dipesh#: [id number] Admission: 05/26/18 Attend Phys: Discharge: 05/26/18 Date of : 49 Report #: [id number] THIS REPORT FOR: //name// CC: Semaj Addison DATE OF SERVICE: 05/26/2018 HISTORY OF PRESENT EVALUATION: The patient is a 72-year-old female, well known to myself. She was seen at Dr. Britt' office, my partner, for wound care today having some mild shortness of breath and edema, although her weight had actually gone down. She does have some intermittent transient O2 drops, but does not require oxygen at home. She was hospitalized a month ago postoperatively for some heart failure symptoms, was found to have a markedly elevated BNP at that time, was aggressively diuresed and her torsemide had subsequently been increased. She was hospitalized and then sent subsequently to rehab. There were some complication of rectal bleeding and anemia in addition at that setting. She was then admitted up to [address] [place] [address] for rehab purposes and subsequently discharged on 04/22/2018. I saw her 04/29/2018 in the office. Diltiazem 180, fish oil, calcium carbonate, Xarelto, Xanax, torsemide 20, pravastatin, probiotic, metoprolol 50 b.i.d., and glucosamine. She has had stable coronary artery disease. No anginal type symptoms. She is in no distress today. She has been getting stronger at home according to I believe her grandson who is present here. LABORATORY DATA: Creatinine 1.2, potassium 3.1. She was given IV Lasix and potassium. Liver function tests were normal. Her troponin is negative. H and H are 9.6 and 29.8, white count 13.6. Her hemoglobin is higher than her discharge hemoglobin. Platelets 243. BNP 2248 was significantly higher last admission. Chest x-ray: Mild atelectasis and borderline cardiomegaly. No evidence of heart failure on this x-ray. PAST MEDICAL HISTORY: Positive for the permanent a-fib, now anticoagulated, remote angioplasty to circumflex artery, last cath was in 2010, mild carotid plaquing, hypertension, hypercholesterolemia, mild ischemic and idiopathic cardiomyopathy. Last stress test was in 2015. History of VT, monomorphic with a single chamber ICD, which was recently interrogated, mitral regurgitation, peripheral vascular disease with left external iliac stent and right femoral bypass occlusion. FAMILY HISTORY: Father had cancer, mother also had cancer. No premature CAD. SOCIAL HISTORY: She was a prior smoker for 30 years, social alcohol. Accompanied by family members. She is retired. [facility] [address] [place] [address] CONSULTATION Name: GABRIEL YUSUF Room #: DEP ISSAC Landon#: [id number] Admission: 05/26/18 Attend Phys: Discharge: 05/26/18 Date of : 49 Report #: [id number] ALLERGIES: SULFA. PHYSICAL EXAMINATION: GENERAL: She is in no distress at this time. Right foot is red and there are nonhealing ulcers, followed by . Some erythema noted. VITAL SIGNS: Blood pressure 122/50, pulse is 80s and 90s and irregular with permanent a-fib. HEENT: Eyes reveal xanthelasmas. Pharynx is clear. NECK: Shows preserved upstrokes without JVD or bruits. LUNGS: Clear. Few fine crackles in the right base. CARDIOVASCULAR: Irregularly irregular, S1, S2. ABDOMEN: Soft. No HSM. EXTREMITIES: Reveal right foot bandaged with some mild early erythema, cellulitis, some superficial ulcers. I cannot palpate distal pulses. NEUROLOGIC: Intact. MUSCULOSKELETAL: Generalized arthritic changes, some valgus deformity of the knees. ASSESSMENT: 1. Mild congestive heart failure exacerbation. IV Lasix has been given. 2. Nonhealing superficial right foot wound may be a component of ischemia here. 3. Mild ischemic idiopathic cardiomyopathy with history of systolic and diastolic failure, although currently functional class 1-2. 4. Hypertension. 5. Hypercholesterolemia. 6. Permanent a-fib, anticoagulated. 7. Anemia, stable. 8. Peripheral vascular disease with history of lower extremity bypass and stent. RECOMMENDATIONS AND PLAN: The patient will be discharged, continuing the fluid and sodium restrictions actually done a good job with this, weight is actually down. No signs for acute care hospitalization here. Arranged for outpatient lower extremity arterial Doppler study and follow up with Dr. Kaufman for possible intervention if indicated and myself tomorrow afternoon. We will continue daily weights, salt and fluid restriction. We will replace potassium. Continue on Demadex 40 mg every day. Continue in addition to the additional medicines up above. Last echo was performed last month, revealing ejection fraction 45%-50%, some moderate mitral insufficiency, moderate tricuspid, PA pressure was 50. This is not significantly changed. [facility] [address] [place] [address] CONSULTATION Name: GABRIEL YUSUF Room #: DEP Dipesh#: [id number] Admission: 05/26/18 Attend Phys: Discharge: 05/26/18 Date of : 49 Report #: [id number] Thank you for asking me to assist in the care of this patient. <ELECTRONICALLY SIGNED> By: Arya Grady MD, FACC 05/31/18 0809 1805 0425 Arya Grady MD, FACC /nt
[~2018-05-26 14:37] MED LIST changes: -CELEXA10 MG PO; -DILTIAZEM HCL90 MG PO; -DULCOLAX5 MG PO; -GLUCOSAMINE CHONDROI; -IRON325 PO; -KLOR-CON 1010 MEQ PO; -OMEPRAZOLE20 M2 PO; -PROBIOTIC1 EAC1 PO; -TRAMADOL 50 MG50 MG PO; -UNICOMPLEX M TA1 TA1 PO
[2018-05-26 14:38] VITALS: BP 120/49
[2018-05-26 14:56] LABS: ABSOLUTE NEUTROPHILS 9.7 thou/uL (1.4-8.2); BASOPHILS 0.8 % (0.0-2.0); EOSINOPHILS 1.2 % (0.0-3.0); HEMATOCRIT 29.8 % (37.0-47.0); HEMOGLOBIN 9.6 gm/dL (12.0-15.0); MCH 30.9 pg (26.0-34.0); MCHC 32.4 g/dL (28.0-37.0); MCV 95.5 fL (80.0-100.0); MONOCYTES 4.7 % (1.0-8.0); PLATELET COUNT 243 thou/uL (150-400); POLYS 71.3 % (36.0-66.0); RBC 3.12 mil/uL (4.20-5.00); RDW 19.8 % (10.5-14.5); WBC 13.6 thou/uL (4.0-11.0)
[2018-05-26 15:07] LABS: ANION GAP 10 mmol/L (7-16); BUN 18 mg/dL (7-18); CALCIUM 9.7 mg/dL (8.5-10.1); CHLORIDE 104 mmol/L (98-107); CO2 28 mmol/L (21-32); CREATININE 1.2 mg/dL (0.6-1.0); GLUCOSE 113 mg/dL (74-106); POTASSIUM 3.1 mmol/L (3.5-5.1); SODIUM 142 mmol/L (136-145)
[2018-05-26 15:16] LABS: ALBUMIN 2.8 g/dL (3.4-5.0); SGOT 19 U/L (15-37); SGPT 17 U/L (30-65); TOTAL BILIRUBIN 0.7 mg/dL (<0.1-1.0); TOTAL PROTEIN 7.7 g/dL (6.4-8.2); TROPONIN-I <0.06 ng/mL (<0.06)
[2018-05-26] MEDS ORDERED: DILTIAZEM HCL90 MG PO (15:25)
[2018-05-26] MEDS ORDERED: OMEPRAZOLE20 M2 PO (15:27)
[2018-05-26] MEDS ORDERED: DEMADEX20 MG PO (15:28)
[2018-05-26] MEDS ORDERED: CELEXA10 MG PO (15:30)
[2018-05-26] MEDS ORDERED: KLOR-CON 1010 MEQ PO (15:30)
[2018-05-26] MEDS ORDERED: IRON325 PO (15:32)
[2018-05-26] MEDS ORDERED: PROBIOTIC1 EAC1 PO (15:32)
[2018-05-26] MEDS ORDERED: UNICOMPLEX M TA1 TA1 PO (15:33)
[2018-05-26] MEDS ORDERED: GLUCOSAMINE CHONDROI (15:35)
[2018-05-26] MEDS ORDERED: TRAMADOL 50 MG50 MG PO (15:36)
[2018-05-26] MEDS ORDERED: DULCOLAX5 MG PO (15:37)
[2018-05-26 18:46] VITALS: BP 133/49
== END 2018-05-26 18:49 | disposition still patient (30) ==
LOC: ER 14:37 → EROBS 16:30 → ER 16:30 → EROBS 18:49
PROVIDERS: Emergency Medicine
DX: R09.02 Hypoxemia (principal); D72.829 Elevated white blood cell count, unspecified; I73.9 Peripheral vascular disease, unspecified; R06.82 Tachypnea, not elsewhere classified; T81.89XA Other complications of procedures, not elsewhere classified, initial encounter; I48.91 Unspecified atrial fibrillation; I11.0 Hypertensive heart disease with heart failure; I50.9 Heart failure, unspecified; G47.30 Sleep apnea, unspecified; I25.10 Atherosclerotic heart disease of native coronary artery without angina pectoris; Z87.891 Personal history of nicotine dependence; Z85.828 Personal history of other malignant neoplasm of skin; Z88.2 Allergy status to sulfonamides; Y83.8 Other surgical procedures as the cause of abnormal reaction of the patient, or of later complication, without mention of misadventure at the time of the procedure; Y92.89 Other specified places as the place of occurrence of the external cause

== ENCOUNTER → 2018-05-26 | Outpatient (CLI) | payer OTHER ==
[~2018-05-26] MED LIST changes: +ASPIR 8181 MG PO; +CARDIZEM CD 18180 M3 PO; +CEFUROXIME250 MG PO; +CELEXA10 MG PO; +COLACE 100 MG100 MG PO; +DEMADEX 2020 MG/1 TA PO; +DILTIAZEM HCL90 MG PO; +DULCOLAX5 MG PO; +GENTAMICIN 0.1%15 G2 TOP; +GLUCOSAMINE CHONDROI; +IRON325 PO; +KLOR-CON 1010 MEQ PO; +LOPRESSOR50 PO; +NOVOLOG100 UNIT/1 SUBQ; +OMEPRAZOLE20 M2 PO; +PREDNISONE 20 M20 M1 PO; +PROBIOTIC1 EAC1 PO; +PROTONIX40 M1 PO; +TRAMADOL 50 MG50 MG PO; +UNICOMPLEX M TA1 TA1 PO; +XARELTO15 MG PO
== END ==
LOC: HYPER 07:11
DX: E11.622 Type 2 diabetes mellitus with other skin ulcer (principal); I87.311 Chronic venous hypertension (idiopathic) with ulcer of right lower extremity; L97.812 Non-pressure chronic ulcer of other part of right lower leg with fat layer exposed; L97.311 Non-pressure chronic ulcer of right ankle limited to breakdown of skin; I48.91 Unspecified atrial fibrillation; I50.9 Heart failure, unspecified; G47.30 Sleep apnea, unspecified; K21.9 Gastro-esophageal reflux disease without esophagitis; F41.9 Anxiety disorder, unspecified; F32.9 Major depressive disorder, single episode, unspecified; Z85.828 Personal history of other malignant neoplasm of skin; Z87.891 Personal history of nicotine dependence; Z95.820 Peripheral vascular angioplasty status with implants and grafts

== ENCOUNTER → 2018-06-02 | Outpatient (CLI) | payer OTHER ==
[~2018-06-02] VITALS: Ht 154.9 cm; Wt 91.7 kg
[~2018-06-02] MED LIST changes: +CELEXA10 MG PO; +DILTIAZEM HCL90 MG PO; +DULCOLAX5 MG PO; +GLUCOSAMINE CHONDROI; +IRON325 PO; +KLOR-CON 1010 MEQ PO; +OMEPRAZOLE20 M2 PO; +PROBIOTIC1 EAC1 PO; +TRAMADOL 50 MG50 MG PO; +UNICOMPLEX M TA1 TA1 PO
--- NOTE | ~2018-06-02 | HC ---
[facility] [place] [address] CONSULTATION Name: GABRIEL YUSUF Room #: REG [facility].#: [id number] Admission: 06/02/18 Attend Phys: Levi Chu Discharge: Date of : 49 Report #: [id number] THIS REPORT FOR: //name// CC: JOSEPH Arizmendi MD DATE OF SERVICE: 06/02/2018 INFECTIOUS MEDICINE CONSULTATION REASON FOR CONSULTATION: Multiple drug resistant germs, right leg ulcers. HISTORY OF PRESENT ILLNESS: A 72-year-old white woman with multiple medical problems is referred by Dr. Hung Britt with history of MRSE, MRSA and Acinetobacter baumannii and right leg ulcers. The organism is resistant to many antibiotics. The patient relates I had seen her many years ago with a chronic nonhealing wound on the right leg secondary to am indwelling MED and that she got better shortly after the MED removed. PAST MEDICAL HISTORY: Coronary artery disease, chronic atrial fibrillation status post permanent pacemaker and defibrillator in the year 2014, morbid obesity. Obstructive sleep apnea, requiring CPAP. Previous history of congestive heart failure, chronic nonhealing ulcer of both legs. DRUG ALLERGIES: SULFA AND AMIODARONE. MEDICATIONS: Tramadol p.r.n., p.r.n. Dulcolax. She is on metoprolol 50 mg 3 times daily, omeprazole 20 mg daily, pravastatin 40 mg daily, torsemide 20 mg daily, diltiazem 180 mg twice daily, citalopram 10 mg daily, potassium 10 mEq 2 capsules by mouth daily, Caltrate 1 tablet 2 times daily, glucosamine chondroitin 1500 mg twice daily, Xarelto 20 mg daily, iron 65 mg daily, vitamin C 1000 mg daily, Centrum 1 daily, omega 3 Krill oil 500 mg daily. SOCIAL HISTORY: See old records. FAMILY HISTORY: See old records. REVIEW OF SYSTEMS: Painful ulceration legs, shortness of breath, ____ resection, fluid retention, congestive heart failure. PHYSICAL EXAMINATION: GENERAL: Well developed, not toxic looking woman. VITAL SIGNS: Temperature 98.5, pulse 115, respirations 20, O2 saturation 95%, [address] [address] CONSULTATION Name: GABRIEL YUSUF Room #: REG [facility].#: [id number] Admission: 06/02/18 Attend Phys: Levi Chu Discharge: Date of : 49 Report #: [id number] BP 107/51. HEENMT: Within range. NECK: Supple. LUNGS: Clear. BREASTS: Deferred. HEART: S1, S2. No gallop. ABDOMEN: Morbidly obese, difficult to examine. PELVIC AND RECTAL: Deferred. EXTREMITIES: Bilateral pretibial edema. Surgical scar of revascularization right thigh. Chronic ulceration x 2, right leg, posterior aspect. Stasis dermatitis, legs. LABORATORY DATA: Cultures of the right leg revealed many coagulase-negative Staphylococcus species, sensitive to rifampin and vancomycin. Another culture revealed growth of MRSA, sensitive to tetracycline, vancomycin, Bactrim and Acinetobacter baumannii, sensitive to tigecycline and cefepime. ASSESSMENT: 1. Chronic ulceration right lower extremity infected, colonized with methicillin-resistant Staphylococcus aureus, methicillin-resistant Staphylococcus epidermidis, and Acinetobacter baumannii, sensitive to tigecycline. 2. Peripheral vascular disease, history of revascularization of lower extremities. 3. Coronary artery disease and chronic atrial fibrillation, status post defibrillator and permanent pacemaker. 4. Electrolyte imbalance. SUGGESTIONS: Recommend continue with local wound care and favor instead of using Tubigrips to legs to use Nico wrap preferable 7 inches Nico wraps with decreasing pressure as the dressings progress up to the leg and thigh. We will give her trial to minocycline 100 mg b.i.d. #40 with precautions not to take this medication close to calcium, magnesium, iron, multivitamins, antacids. I would like to visit with the patient again in a couple of weeks and possibly we should be checking CBC in view of previous anemia as well as CMP in view of previous hypokalemia and malnutrition. <ELECTRONICALLY SIGNED> By: Levi Linares MD 06/04/18 0939 1205 185 Levi Linares MD /nt
[2018-06-02 10:39] VITALS: BP 107/51
[2018-06-02 12:15] LABS: ABSOLUTE NEUTROPHILS 7.9 thou/uL (1.4-8.2); BASOPHILS 0.6 % (0.0-2.0); EOSINOPHILS 1.1 % (0.0-3.0); HEMATOCRIT 29.4 % (37.0-47.0); HEMOGLOBIN 9.7 gm/dL (12.0-15.0); LYMPHOCYTES 23.7 % (24.0-44.0); MCH 31.2 pg (26.0-34.0); MCHC 33.2 g/dL (28.0-37.0); MCV 93.9 fL (80.0-100.0); MONOCYTES 5.3 % (1.0-8.0); PLATELET COUNT 255 thou/uL (150-400); POLYS 69.3 % (36.0-66.0); RBC 3.13 mil/uL (4.20-5.00); RDW 19.4 % (10.5-14.5); WBC 11.3 thou/uL (4.0-11.0)
[2018-06-02 12:36] LABS: CALCIUM 9.9 mg/dL (8.5-10.1); CREATININE 1.2 mg/dL (0.6-1.0); POTASSIUM 4.5 mmol/L (3.5-5.1); TOTAL BILIRUBIN 0.5 mg/dL (<0.1-1.0); TOTAL PROTEIN 7.6 g/dL (6.4-8.2)
[2018-06-02 12:39] LABS: ANISOCYTOSIS 2+; POLYCHROMASIA OCCASIONAL
== END ==
LOC: SEN 08:22
PROVIDERS: Internal Medicine Infectious Disease
DX: L97.919 Non-pressure chronic ulcer of unspecified part of right lower leg with unspecified severity (principal); I73.9 Peripheral vascular disease, unspecified; I11.0 Hypertensive heart disease with heart failure; I50.9 Heart failure, unspecified; B95.62 Methicillin resistant Staphylococcus aureus infection as the cause of diseases classified elsewhere; I25.10 Atherosclerotic heart disease of native coronary artery without angina pectoris; I48.0 Paroxysmal atrial fibrillation; E87.8 Other disorders of electrolyte and fluid balance, not elsewhere classified; Z95.0 Presence of cardiac pacemaker

== ENCOUNTER → 2018-06-09 | Outpatient (CLI) | payer OTHER | LOC: HYPER 07:05 | DX: E11.622 Type 2 diabetes mellitus with other skin ulcer (principal); I87.311 Chronic venous hypertension (idiopathic) with ulcer of right lower extremity; L97.812 Non-pressure chronic ulcer of other part of right lower leg with fat layer exposed; G47.33 Obstructive sleep apnea (adult) (pediatric); I48.91 Unspecified atrial fibrillation; I50.9 Heart failure, unspecified; F41.9 Anxiety disorder, unspecified; F32.9 Major depressive disorder, single episode, unspecified; Z85.828 Personal history of other malignant neoplasm of skin; Z87.891 Personal history of nicotine dependence; Z95.820 Peripheral vascular angioplasty status with implants and grafts ==

== ENCOUNTER → 2018-06-17 | Outpatient (CLI) | payer OTHER | LOC: SEN 07:49 | DX: L97.919 Non-pressure chronic ulcer of unspecified part of right lower leg with unspecified severity (principal) ==

== ENCOUNTER → 2018-06-24 | Outpatient (CLI) | payer OTHER | LOC: HYPER 06:56 | DX: E11.622 Type 2 diabetes mellitus with other skin ulcer (principal); I87.311 Chronic venous hypertension (idiopathic) with ulcer of right lower extremity; L97.812 Non-pressure chronic ulcer of other part of right lower leg with fat layer exposed; G47.30 Sleep apnea, unspecified; I48.91 Unspecified atrial fibrillation; I50.9 Heart failure, unspecified; K21.9 Gastro-esophageal reflux disease without esophagitis; F41.9 Anxiety disorder, unspecified; F32.9 Major depressive disorder, single episode, unspecified; Z85.828 Personal history of other malignant neoplasm of skin; Z87.891 Personal history of nicotine dependence; Z95.5 Presence of coronary angioplasty implant and graft; Z95.820 Peripheral vascular angioplasty status with implants and grafts ==

== ENCOUNTER → 2018-07-13 | Outpatient (CLI) | payer OTHER ==
[2018-07-13 10:40] VITALS: BP 116/68
== END ==
LOC: SEN 08:37
DX: L97.218 Non-pressure chronic ulcer of right calf with other specified severity (principal); L08.89 Other specified local infections of the skin and subcutaneous tissue; B96.89 Other specified bacterial agents as the cause of diseases classified elsewhere

== ENCOUNTER → 2018-08-10 | Outpatient (CLI) | payer OTHER | LOC: SEN 09:17 | DX: M25.512 Pain in left shoulder (principal); L97.919 Non-pressure chronic ulcer of unspecified part of right lower leg with unspecified severity; Z79.899 Other long term (current) drug therapy ==

== ENCOUNTER → 2019-02-07 | Outpatient (CLI) | payer OTHER ==
[~2019-02-07] VITALS: Ht 149.9 cm; Wt 89.4 kg
[~2019-02-07] MED LIST changes: +CALTRATE-600 W1 EACH PO; +CENTRUM SILVER1 EAC4 PO; +DILTIAZEM 24HR180 M2 PO; +GLUCOSAMINE CH1 EAC2 PO; +KRILL OIL 1,501 EACH PO; +SORINE 80 MG TA80 M1 PO; +VITAMIN C1000 MG PO; +XARELTO20 MG PO; +[UNRECOGNIZED DRUG - OTHER] PO
--- NOTE | 2019-02-08 13:36 | P ---
[facility] [place] [address] PROCEDURE REPORT Name: GABRIEL YUSUF Room #: REG [facility]#: [id number] Admission: 02/07/19 ������������������ Attend Phys: Ovidio Worthington MD Discharge: ������������������ Date of : 49 Report #: [id number] THIS REPORT FOR: //name// CC: Ovidio Addison MD DATE OF SERVICE: 02/07/2019 OUTPATIENT UPPER ENDOSCOPY BRIEF HISTORY: The patient is a 73-year-old woman who has dysphagia primarily for liquids rather than solids. She also is anemic and has rectal bleeding. In addition, she has a history of H. pylori gastritis, treated in the past. PREOPERATIVE DIAGNOSES: Dysphagia and anemia. POSTOPERATIVE DIAGNOSES: 1. Diffuse gastritis. 2. Dysphagia. MEDICATIONS: Deep sedation with propofol per anesthesia. SPECIMENS: 1. Small bowel biopsy to rule out celiac disease. 2. Biopsies of gastritis. ESTIMATED BLOOD LOSS: 3 mL. PROCEDURE: EGD with biopsy, Lopez dilation. FINDINGS: Prior to propofol sedation, procedure of upper endoscopy was reviewed with the patient as well as potential risks and its complications. She indicates, she understands and desires to proceed. DESCRIPTION OF PROCEDURE: With the patient in left lateral decubitus position, the Olympus video endoscope was inserted in the cervical esophagus under direct vision without difficulty. Examination of this organ through its entire length revealed normal esophageal mucosa down the squamocolumnar junction. No bleeding lesions were seen. There was no evidence of esophagitis or [place] mucosa. A definite stricture or ring was not seen. In addition, features of eosinophilic esophagitis were not seen. Scope was advanced in the stomach, was examined on end view as well as retroflexed views. She had a pattern of gastritis with linear erythema in the antrum, but no ulcers or erosions in the body of the stomach, there was noted be a mild nodular pattern. The mucosa was intact. No bleeding lesions were seen. Upon retroflexion, no mass lesions were seen. [facility] [address] [place] [address] PROCEDURE REPORT Name: GABRIEL YUSUF Room #: REG [facility].#: [id number] Admission: 02/07/19 ������������������ Attend Phys: Ovidio Worthington MD Discharge: ������������������ Date of : 49 Report #: [id number] significant hiatus hernia was not seen. Biopsies obtained of the gastritis. The pylorus was normal. Duodenal bulb was normal. Postbulbar duodenal sweep down to the fourth portion was normal. No bleeding lesions were seen. AVMs were not seen. Multiple small bowel biopsies were obtained to evaluate for celiac disease in view of her anemia. As we withdrew the scope, biopsies obtained of the gastritis as well. Subsequently, she was dilated with passage of 52-Urdu Lopez dilator without any resistance whatsoever. CONDITION OF THE PATIENT UPON DISCHARGE: Following procedure, the patient drowsy. She was then prepared for colonoscopy. INSTRUCTIONS TO THE PATIENT AND FAMILY AT THE TIME OF DISCHARGE: We will follow up on biopsies and make further recommendation with regard to H. pylori and possibly celiac disease. Proceed with colonoscopy at this time. The patient has been on omeprazole, would suggest she use the lowest dose to control symptoms. She should follow up with Dr. Ck Addison with regards to her anemia. If it continues to be a problem, be happy to see her in followup in the office. We can dilate as needed for dysphagia as long as she obtains benefit from dilation. However, symptoms persist following dilation further evaluation with esophageal manometry may be indicated. ��������������������������������������������� <ELECTRONICALLY SIGNED> ���������������������������������������� By: Ovidio Worthington MD ��������������������������������������������� 02/08/19 1336 0806 1844 Ovidio Worthington MD /nt
--- NOTE | 2019-02-08 13:36 | P ---
[facility] [place] [address] PROCEDURE REPORT Name: GABRIEL YUSUF Room #: REG [facility]#: [id number] Admission: 02/07/19 ������������������ Attend Phys: Ovidio Worthington MD Discharge: ������������������ Date of : 49 Report #: [id number] THIS REPORT FOR: //name// CC: Ovidio Addison MD DATE OF SERVICE: 02/07/2019 OUTPATIENT COLONOSCOPY BRIEF HISTORY: The patient is a 73-year-old woman who has had intermittent rectal bleeding. She also has a history of a positive Cologuard. Last colonoscopy was about 5 or 6 years ago, reportedly negative per her report. PREOPERATIVE DIAGNOSIS: Rectal bleeding, positive Cologuard. In addition, she is anemic. POSTOPERATIVE DIAGNOSES: 1. Colon polyps. 2. Rectal polyp. 3. Moderate sigmoid diverticulosis coli. 4. Small internal hemorrhoids. MEDICATIONS: Deep sedation with propofol per anesthesia. SPECIMENS: 1. Proximal transverse colon polyps x 2. 2. Rectal polyp. ESTIMATED BLOOD LOSS: 7 mL. PROCEDURE: Colonoscopy to cecum and terminal ileum with snare polypectomy, biopsy and hemostasis at the polypectomy site. FINDINGS: Prior to propofol sedation, procedure of colonoscopy was reviewed with the patient as well as potential risks and its complications. She indicates she understands and desires to proceed. DESCRIPTION OF PROCEDURE: With the patient in left lateral decubitus position, digital examination was completed, which revealed no abnormalities. Subsequently, the Olympus video colonoscope was introduced in the rectum, advanced under direct vision to the cecum. Done with minimal difficulty. The cecum was identified by the ileocecal valve and the appendiceal orifice. I was able to visualize the distal segment of the terminal ileum, which was inspected and noted to be unremarkable. At that point, the scope was slowly withdrawn and [facility] [address] [place] [address] PROCEDURE REPORT Name: GABRIEL YUSUF Room #: REG [facility] Landon#: [id number] Admission: 02/07/19 ������������������ Attend Phys: Ovidio Worthington MD Discharge: ������������������ Date of : 49 Report #: [id number] careful circumferential views obtained including retroflexion of the scope in the ascending colon. Upon slow withdrawal of the scope, the prep was good. The mucosa was within normal limits, normal vascular pattern, normal light reflex. As we withdrew the scope, 2 diminutive polyps were seen in the proximal transverse colon and removed with biopsy forceps. The scope was further withdrawn. In the sigmoid colon, there was noted to be moderately severe diverticular disease without endoscopic evidence of diverticulitis. The scope was withdrawn in the rectum and in the very distal rectum, was a sessile, approximately 1 cm polyp. Upon retroflexion, small hemorrhoids were seen. Since the patient takes Xarelto and also, she has a defibrillator, this polyp was removed successfully with cold snare polypectomy. There was a little more oozing than expected. It was noted this polyp was in the distal rectum several centimeters above the anal verge. We placed a single hemostatic clip, which resulted in good hemostasis. Scope was withdrawn. The patient tolerated the procedure well. CONDITION OF THE PATIENT UPON DISCHARGE: Following procedure, the patient was drowsy, aroused, conversant and will be discharged to home when fully ambulatory. INSTRUCTIONS TO THE PATIENT AND FAMILY AT THE TIME OF DISCHARGE: The patient did have a good size distal rectal polyp, which may have been the source of her bleeding. She also has small hemorrhoids. Active bleeding was not seen. We will follow up on the pathology, but at this point, I suggest return in 3 years for colonoscopy, especially due to the 1 cm polyp in distal rectum. We will have her restart her Xarelto tomorrow. She will return to the care of Dr. Ck Addison and return to see me as needed. ��������������������������������������������� <ELECTRONICALLY SIGNED> ���������������������������������������� By: Ovidio Worthington MD ��������������������������������������������� 02/08/19 1336 0836 1853 Ovidio Worthington MD /nt
--- NOTE | 2019-02-08 16:05 | PATH ---
[facility] [place] [address] [place] [address] PATHOLOGY RPT PROCEDURE Name: DEANNA YUSUF Room #: REG ALLEN Gabriel.#: [id number] ������������������ Admission: 02/07/19 ������������������ Date of : 49 Discharge: Report #: [id number] Path Case #: [id number] [facility] Accession Number: [id number] . 01 Material submitted: . PART A: small bowel - BX SMALL BOWEL R/O CELIAC DISEASE HX ANEMIA PART B: stomach - BX GASTRITIS R/O H PYLORI PART C: colon - BX POLYP AT PROXIMAL TRANSVERSE COLON X2. Modifiers: transverse, proximal PART D: rectum - POLYP AT RECTUM . 01 Clinical history: . Pre-OP DX: Anemia, blood in stool, trouble swallowing, Hx H. pylori Post-OP DX: Diffuse gastritis, dysphagia, colon polyps, diverticulosis, rectal polyp, hemorrhoids . 02 Diagnosis: A. Small bowel mucosa, small bowel rule out celiac disease, endoscopic biopsy: - No diagnostic abnormalities. - Negative for villous blunting or increase in intraepithelial lymphocytes. . B. Gastric mucosa, gastritis, rule out H. pylori, endoscopic biopsy: - Mild reactive gastropathy. - Negative for intestinal metaplasia or atrophy. - Negative for Helicobacter pylori (properly-controlled immunohistochemical stain performed). . C. Polyp x2, proximal transverse, endoscopic biopsy: - All fragments showing inflammatory hyperplastic polyp. - Negative for dysplasia. . D. Polyp, at rectum, endoscopic biopsy: - Tubular adenoma. - Negative for high grade dysplasia. - Adenomatous and unremarkable mucosa identified at margin. . (IUV:mml; 02/08/2019) [facility]/02/08/2019 . 02 Comment: Please correlate with endoscopic findings for a complete resection of this polyp. . Dr. Dontrell Aguirre and Dr. Martha Moreno have seen part D of this case cocnur with lack of high grade dysplasia in the tubular adenoma. [address] [address] PATHOLOGY RPT PROCEDURE Name: DEANNA YUSUF Room #: REG [facility].#: [id number] ������������������ Admission: 02/07/19 ������������������ Date of : 49 Discharge: Report #: [id number] Path Case #: [id number] (IUV:mml; 02/08/2019) . 02 Electronically signed: . Aide Grande MD, Pathologist NPI- [id number] . 01 Gross description: . A. Received in formalin labeled "Yusuf, Deanna, small bowel BX, rule out celiac, Hx of anemia," are 5 segments of mcnamara soft tissue measuring 1.4 x 0.8 x 0.3 cm in aggregate dimensions and ranging from 0.3 to 0.6 cm in maximum dimension. The specimen is submitted entirely in cassette A1. . B. Received in formalin labeled "Yusuf, Deanna, BX gastritis, rule out H. pylori," are 5 segments of mcnamara soft tissue measuring 1.7 x 0.9 x 0.2 cm in aggregate dimensions and ranging from 0.3 to 0.5 cm in maximum dimension. The specimen is submitted entirely in cassette B1. . C. Received in formalin labeled "YusufKunale, BX polyp at proximal transverse colon x2," are 2 segments of mcnamara soft tissue measuring 0.6 x 0.3 x 0.1 cm in aggregate dimensions and measuring 0.3 cm each in maximum dimension. The specimen is submitted entirely in cassette C1. . D. Received in formalin labeled "Deanna Yusuf, polyp at rectum," is a 1.1 x 0.8 x 0.8 cm polypoid piece of mcnamara soft tissue. The margin is inked and the tissue is sectioned perpendicular to the margin and submitted entirely in cassette D1 and D2. (TSD; 02/07/2019) TOB/TOB . 02 Pathologist provided ICD-10: K31.9, K63.5, D12.8, D64.9, K92.1, R13.10 . 02 CPT . 592567, 392051, 700153, [id number], [id number] Specimen Comment: A courtesy copy of this report has been sent to Specimen Comment: [phone], . Specimen Comment: Report sent to / DR GARCIA Performed at: [address] [facility], [place], [place] [id number] MD Raúl Duncan MD Phone: [phone] Performed at: [address] [id number] MD Aide Grande MD Phone: [phone]
== END | disposition home or self-care (01) ==
LOC: GI 06:25
DX: D12.8 Benign neoplasm of rectum (principal); K63.5 Polyp of colon; K31.9 Disease of stomach and duodenum, unspecified; K57.30 Diverticulosis of large intestine without perforation or abscess without bleeding; K64.8 Other hemorrhoids; K21.9 Gastro-esophageal reflux disease without esophagitis; I48.91 Unspecified atrial fibrillation; G47.30 Sleep apnea, unspecified; E11.9 Type 2 diabetes mellitus without complications; I25.2 Old myocardial infarction; I50.9 Heart failure, unspecified; I73.9 Peripheral vascular disease, unspecified; F41.9 Anxiety disorder, unspecified; F32.9 Major depressive disorder, single episode, unspecified; Z87.891 Personal history of nicotine dependence; Z85.828 Personal history of other malignant neoplasm of skin; Z98.41 Cataract extraction status, right eye; Z98.42 Cataract extraction status, left eye; Z79.899 Other long term (current) drug therapy; Z79.01 Long term (current) use of anticoagulants; Z98.890 Other specified postprocedural states
CPT/HCPCS: 62110; 62900

== ENCOUNTER → 2019-05-16 | Outpatient (CLI) | payer OTHER ==
[~2019-05-16] VITALS: Ht 149.9 cm; Wt 88.9 kg
[2019-05-16 07:24] LABS: HEMATOCRIT 41.6 % (37.0-47.0); HEMOGLOBIN 13.6 gm/dL (12.0-15.0); MCH 32.2 pg (26.0-34.0); MCHC 32.8 g/dL (28.0-37.0); MCV 98.2 fL (80.0-100.0); PLATELET COUNT 196 thou/uL (150-400); RBC 4.24 mil/uL (4.20-5.00); RDW 16.5 % (10.5-14.5)
[2019-05-16 07:26] VITALS: BP 92/54
[2019-05-16 07:29] LABS: CALCIUM 10.1 mg/dL (8.5-10.1); CREATININE 0.9 mg/dL (0.6-1.0)
[2019-05-16 07:34] LABS: APTT 34.5 Seconds (24.5-32.8); INR 1.2; PROTIME 12.5 Seconds (9.3-11.4)
--- NOTE | 2019-05-16 08:48 | EKG ---
[address] [address] ELECTROCARDIOGRAM REPORT Name: GABRIEL YUSUF Room #: REG [facility]#: [id number] Admission: 05/16/19 Attend Phys: Arya Grady MD, Discharge: Date of : 49 Report #: [id number] THIS REPORT FOR: //name// [facility] Test Date: 2019-05-16 Test Time: 07:20:13 Pat Name: GABRIEL YUSUF Department: Room: Gender: F Corporate Sales Representative: Zeny SHEA : 1945 Requested By: Arya Grady Order Number: [id number] MD: Neo Gould Measurements Intervals [place] Rate: 74 P: MN: QRS: 5 QRSD: 101 T: QT: 627 QTc: 696 Interpretive Statements Atrial fibrillation Anteroseptal infarct, old Nonspecific ST and T wave abnormality Prolonged QT interval Compared to ECG 05/26/2018 14:49:50 Nonspecific change in the ST and T-wave segments Electronically Signed On 05-16-2019 8:47:52 CDT by Neo Gould [email or web address] <ELECTRONICALLY SIGNED> By: Neo Gould MD, [facility] 05/16/19 0847 9 9 Neo Gould MD, [facility] /EPI
[2019-05-16 12:12] LABS: ALBUMIN 3.7 g/dL (3.4-5.0); DIRECT BILIRUBIN 0.2 mg/dL (<0.1-0.3); TOTAL BILIRUBIN 0.5 mg/dL (<0.1-1.0); TOTAL PROTEIN 7.9 g/dL (6.4-8.2)
[2019-05-16 12:16] LABS: ABSOLUTE NEUTROPHILS 7.1 thou/uL (1.4-8.2); PLATELET ESTIMATE NORMAL
[2019-05-16 16:39] LABS: URINE BILIRUBIN NEGATIVE (Negative); URINE BLOOD 1+ (Negative); URINE CLARITY CLEAR; URINE COLOR YELLOW; URINE GLUCOSE-RANDOM* NEGATIVE (Negative); URINE KETONES NEGATIVE (Negative); URINE LEUKOCYTES-REFLEX NEGATIVE (Negative); URINE NITRITE-REFLEX NEGATIVE (Negative); URINE PROTEIN (DIPSTICK) NEGATIVE (Negative); URINE SPECIFIC GRAVITY <= 1.005 (1.005-1.035); URINE UROBILINOGEN 0.2 E.U./dl (0.2-1.0)
[2019-05-16 16:52] LABS: BACTERIA-REFLEX 1-9 Few /HPF (None Seen); CASTS None Seen /LPF (None Seen); CRYSTALS None Seen /LPF (None Seen); SQUAMOUS 0-3 Few /LPF (0-3); URINE RBC 0-2 Rare /HPF (0-2); URINE WBC-REFLEX 0-5 Rare /HPF (0-5)
--- NOTE | 2019-05-17 17:26 | CATHLAB ---
[facility] [address] [place] [address] INVASIVE PROCEDURE REPORT Name: GABRIEL YUSUF [facility] [id number] Admission: 05/16/19 Attend Phys: Arya Grady, Discharge: Date of : 49 Report #: [id number] THIS REPORT FOR: //name// APPROVED REPORT Study performed: 05/16/2019 08:18:04 Patient Details Patient Status: Out-Patient Room #: The patient is a 73 year-old female Event Personnel Arya Grady Med Care Manager, Luan Blanchard RN RN, Sera Soriano Monitor, Mustapha Andujar RTR Scrub, Luiza Flores RTR Scrub Procedures Performed Art Access - R femoral artery* Cruzito Access - R femoral vein Right and Left Heart Cath w/or w/o Coronarie [id number] [facility] 33432 Initial Mod Sed Same Phys/QHP Gr [id number] 64179 Mod Sed Same Phys/QHP Ea [id number] Indication Chest pain Procedure Narrative The patient was brought electively to the Cardiac Catheterization Laboratory and was prepped and draped in a sterile manner. The Right Groin^ was infiltrated with 1% Lidocaine subcutaneous anesthesia. A Right Heart Catheterization was performed with a 7 Fr. [place]-Ji catheter and pressure were recorded. Cardiac outputs were obtained by the Thermal Dilution method. A PINNACLE 6FR Sheath #[id number] sheath was inserted into the RFA^. Coronary angiography was performed using coronary diagnostic catheters. The right coronary system was accessed and visualized with a JR 4 catheter. The left coronary system was accessed and visualized with a JL 4 catheter. The left ventricle was accessed and visualized with a Pigtail catheter. Left ventricular/Aortic Valve gradient assessed via catheter pullback. Left ventriculogram was performed in CASTRO projection. Hemostasis was obtained with manual pressure following sheath removal without any complications. The patient tolerated the procedure well and there were no complications associated with the procedure. There was no hematoma. Intraoperative Conscious Sedation [facility] [address] [place] [address] INVASIVE PROCEDURE REPORT Name: GABRIEL YUSUF Room #: REG [facility] [id number] Admission: 05/16/19 Attend Phys: Arya Grady, Discharge: Date of : 49 Report #: [id number] Sedation start time: 08:32 Case end Time: 10:18 Fentanyl 200 mcg Versed 4 mg Fluoro Time: 5.10 minutes Dose: DAP 7259.00 cGycm2 667 mGy Contrast Type and Amount: Omnipaque 100 ml Hemodynamics The right atrial mean pressure is 16 mmHg. The right ventricular pressure is 58/10 mmHg. The pulmonary artery pressure is 58/27 mmHg with a mean of 41 mmHg. The mean pulmonary capillary wedge pressure is 28 mmHg. The aortic pressure is 122/61 mmHg with a mean of 83 mmHg. The left ventricular pressure is 154/12 mmHg with a mean of mmHg. The left ventricular end diastolic pressure is 35 mmHg. The cardiac output using thermo method is 3.90 L/min. The cardiac index using thermo method is 2.18 L/min/m2. Conclusion #1 normal left ventricular size and systolic function 55-60% with 3-4+ mitral regurgitation #2 LAD with mild diffuse distal disease no occlusive disease #3 small nondominant circumflex with minimal distribution moderate diffusely diseased #4 dominant right coronary artery with mild irregularities PDA MYRA well preserved #5 successful right heart catheterization with hemodynamics stated above. Cardiac output by thermodilution. Indications and plan: Continue aggressive risk factor modification will need diuresis and fluid restriction. Mitral regurgitation appear significant mild to moderate pulmonary pressure/volume increase is noted. <ELECTRONICALLY SIGNED> By: Arya Grady MD, FACC 05/17/195 24 24 Arya Grady MD, FACC /INF
--- NOTE | 2019-05-22 07:56 | HC ---
[facility] [place] [address] CONSULTATION Name: GABRIEL YUSUF Room #: REG ALLEN Rios.#: [id number] Admission: 05/16/19 Attend Phys: Arya Grady MD, Discharge: Date of : 49 Report #: [id number] THIS REPORT FOR: //name// CC: Star Allreden Cyn DATE OF SERVICE: 05/16/2019 We were asked to see the patient by Dr. Kaufman. The patient had a lower extremity arteriogram earlier in the day. HISTORY OF PRESENT ILLNESS: The patient is a 73-year-old with complaints of left thigh pain on exertion. The patient complains of having left upper thigh pain radiating to the left hip. The patient also describes pain that is more consistent with calf claudication. The patient denies problems with night pain or rest pain and there are no nonhealing lesions. 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 MEDICATIONS: Includes vitamins and minerals, Celexa, Cardizem, Lopressor, Prilosec, Pravachol, Xarelto, Betapace, Demadex and Ultram. ALLERGIES: AMIODARONE, AND SULFA. SOCIAL HISTORY: The patient is a former smoker, quit in 1995 after a 81-clth-dihh smoking history. REVIEW OF SYSTEMS: GENERAL: No fevers, weight change. RESPIRATORY: No shortness of breath or cough. CARDIAC: No chest pain or palpitations. GASTROINTESTINAL: No blood in stools. No abdominal pain. No nausea or vomiting. GENITOURINARY: No urgency or frequency. MUSCULOSKELETAL: No bone or joint complaints. NEUROLOGIC: No motor or sensory dysfunction. VASCULAR: Calf claudication. SKIN: No rash or infection. HEENT: No change in vision. No headache, no sinus drainage. [facility] [address] [place] [address] CONSULTATION Name: GABRIEL YUSUF MALIK Room #: REG [facility] [id number] Admission: 05/16/19 Attend Phys: Arya Grady MD, Discharge: Date of : 49 Report #: [id number] PHYSICAL EXAMINATION: GENERAL: The patient is lying in bed after her peripheral vascular procedure. VITAL SIGNS: Blood pressure 115/60, heart rate 82. HEENT: No scleral icterus, no arcus. NECK: No mass, no bruit. CHEST: Clear to auscultation. HEART: Rhythm regular. Heart tones distant. No murmur audible. ABDOMEN: Soft, no mass, no tenderness. EXTREMITIES: Femoral pulses are grade 2 on the left, right not easily palpable due to dressing. Right popliteal pulse is palpable. I do not feel a left popliteal pulse. EXTREMITIES: No ulceration or gangrene. No obvious saphenous vein problems. MUSCULOSKELETAL: No obvious bone or joint asymmetry or deformity. SKIN: No rash or infection. IMPRESSION: Arteriogram showed lesion in the left common femoral extending into the superficial femoral artery. The hip pain is not particularly reflective of this lesion, but the distal claudication is. The patient understands risks and details of surgery (femoral endarterectomy). Options and alternatives were reviewed. The patient insists that surgery be done for symptoms. We note there is a remote history of staph infection and we have taken swab of the nose and started mupirocin and details of infection were reviewed with the patient and family. We will schedule surgery, but be aware of the results of the swallow. Thank you for the consult. <ELECTRONICALLY SIGNED> By: Ovidio Mckeon MD 05/22/19 0756 0859 2135 Ovidio Mckeon MD /nt
== END | disposition home or self-care (01) ==
LOC: SPEC 06:48 → CATH 06:48
PROVIDERS: Internal Medicine Cardiovascular Disease; Surgery Vascular Surgery
DX: R07.9 Chest pain, unspecified (principal); I25.10 Atherosclerotic heart disease of native coronary artery without angina pectoris; I70.212 Atherosclerosis of native arteries of extremities with intermittent claudication, left leg; I70.1 Atherosclerosis of renal artery; I11.0 Hypertensive heart disease with heart failure; I50.9 Heart failure, unspecified; I42.9 Cardiomyopathy, unspecified; I25.2 Old myocardial infarction; I48.91 Unspecified atrial fibrillation; K21.9 Gastro-esophageal reflux disease without esophagitis; E78.5 Hyperlipidemia, unspecified; F32.9 Major depressive disorder, single episode, unspecified; F41.9 Anxiety disorder, unspecified; Z79.01 Long term (current) use of anticoagulants; Z85.828 Personal history of other malignant neoplasm of skin; Z87.891 Personal history of nicotine dependence; Z98.890 Other specified postprocedural states; Z98.42 Cataract extraction status, left eye; Z98.41 Cataract extraction status, right eye; Z95.810 Presence of automatic (implantable) cardiac defibrillator

== ENCOUNTER 2019-06-07 07:58 | Inpatient (IN) | payer OTHER ==
[~2019-06-07] VITALS: Ht 149.9 cm; Wt 89.8 kg
[2019-06-14] VITALS (23 sets, daily range): BP systolic 92–134; BP diastolic 44–84
[2019-06-14 08:53] LABS: HEMATOCRIT 35.3 % (37.0-47.0); HEMOGLOBIN 11.9 gm/dL (12.0-15.0); MCH 32.4 pg (26.0-34.0); MCHC 33.6 g/dL (28.0-37.0); MCV 96.4 fL (80.0-100.0); RBC 3.66 mil/uL (4.20-5.00); RDW 15.4 % (10.5-14.5); WBC 11.4 thou/uL (4.0-11.0)
[2019-06-14 09:07] LABS: APTT 30.2 Seconds (24.5-32.8); FIBRINOGEN 489.5 mg/dL (210-360); INR 1.1; PROTIME 11.4 Seconds (9.3-11.4)
[2019-06-14 09:10] LABS: ALBUMIN 3.1 g/dL (3.4-5.0); CALCIUM 9.4 mg/dL (8.5-10.1); CREATININE 1.1 mg/dL (0.6-1.0); TOTAL BILIRUBIN 0.5 mg/dL (<0.1-1.0); TOTAL PROTEIN 6.9 g/dL (6.4-8.2)
[2019-06-14 09:14] LABS: POTASSIUM 2.7 mmol/L (3.5-5.1)
[2019-06-14 13:20] LABS: CREATININE 1.1 mg/dL (0.6-1.0)
[2019-06-14 13:24] LABS: HEMATOCRIT 36.3 % (37.0-47.0); HEMOGLOBIN 12.2 gm/dL (12.0-15.0); MCH 32.5 pg (26.0-34.0); MCHC 33.5 g/dL (28.0-37.0); MCV 96.8 fL (80.0-100.0); RBC 3.75 mil/uL (4.20-5.00); RDW 15.2 % (10.5-14.5)
[2019-06-14 13:27] LABS: POTASSIUM 2.8 mmol/L (3.5-5.1)
--- NOTE | 2019-06-14 14:00 | NUR ---
Pt rec'd from PACU s/p Left Femoral Endarterectomy w/ Patch Closure. Pt A&O x 4 upon arrival. Pt denies pain. VSS. Normothermic. Right radial a-line, transduced with appropriate waveform. O2 3L NC; Lungs clear, diminished. Regular diet ordered. [place] w/ small amt dark yellow urine. Left groin surgical site with Prevena ULTA at -125mmHG. MED drain to bulb sx with small amt serosang drng. Site intact. No drng noted. Distal pulses bilaterally easily palpated. Dr. Hardin consulted for medical management.
[2019-06-15] VITALS (13 sets, daily range): BP systolic 103–149; BP diastolic 41–79
--- NOTE | 2019-06-15 04:28 | NUR ---
PATIENT REMAINED ON BEDREST THROUGHT THE NIGHT, NO COMPLAINTS OF PAIN. LEFT GROIN SITE INTACT, PREVENA WOUND VAC INTACT. RIGHT RADIAL ART LINE SYSTOLIC BLOOD PRESSURE REMAINED BELOW 130. PATIENT A-FIB ON HVAC SPECIALIST. TOLERATING HOME C-PAP. NO SIGNS OF ACUTE DISTRESS NOTED AT THIS TIME. WILL CONTINUE TO MONITOR.
[2019-06-15 05:45] LABS: HEMATOCRIT 32.5 % (37.0-47.0); HEMOGLOBIN 10.8 gm/dL (12.0-15.0); MCH 32.4 pg (26.0-34.0); MCHC 33.1 g/dL (28.0-37.0); MCV 97.8 fL (80.0-100.0); RBC 3.33 mil/uL (4.20-5.00); RDW 15.4 % (10.5-14.5)
[2019-06-15 06:05] LABS: CALCIUM 8.9 mg/dL (8.5-10.1); CREATININE 1.1 mg/dL (0.6-1.0)
[2019-06-15 06:06] LABS: POTASSIUM 4.2 mmol/L (3.5-5.1)
--- NOTE | 2019-06-15 15:13 | NUR ---
PT ADMITTED RELATED TO LEFT FEMORAL ENDARTERECTOMY. CM REVIEWED CHART AND SPOKE WITH CARE TEAM. CM MET WITH PT AT BEDSIDE THIS DAY. PT IS A&O X4. CM ROLE INTRODCUED. PT INDICATED SHE LIVES ALONE IN A HOUSE WITH ONLY A THRESHOLD TO ENTER AND NO STEPS SHE USES INSIDE. 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 PT INDICATED THAT SHE HAS SHOWER CHAIR, GRAB BARS, RAISED TOILETS, AND A WALK IN SHOWER WITH A SEAT. PT INDICATED SHE HAS A NURSE THROUGH HER [employer] INSURANCE FROM A COMPANY CALLED [employer] WHO CHECKS ON HER MONTHLY. PT WAS RECEPTIVE TO HOME HEALTH UPON DC IF INDICATED AND ASKED THAT REFERRAL BE SENT TO [facility] SHE HAD USED [facility] IN THE PAST. PT'S SISTER ORIANA AND HER NEPHEW SANTA ARE ATTENTIVE AND ABLE TO ASSIST PT UPON DC. CARE TEAM INDICATED PROBABLE DC THURSDAY WITH HH SERVICES. CM TO FOLLOW INDICATED WITH DC PLANNING.
--- NOTE | 2019-06-15 16:01 | NUR ---
FAXED REFERRAL TO [facility] SPOKE WITH MERARY IN ADM SHE RECEIVED REFERRAL AND CAN ACCEPT PT AT DISCHARGE. DP TO FOLLOW.
[2019-06-16 02:25] VITALS: BP 134/71
[2019-06-16 05:22] VITALS: BP 107/62
[2019-06-16 05:58] LABS: ALBUMIN 2.8 g/dL (3.4-5.0); CALCIUM 8.9 mg/dL (8.5-10.1); CREATININE 0.9 mg/dL (0.6-1.0); PHOSPHORUS 3.1 mg/dL (2.5-4.9); POTASSIUM 3.7 mmol/L (3.5-5.1)
[2019-06-16 07:45] VITALS: BP 98/47
--- NOTE | 2019-06-16 11:24 | NUR ---
No event tonight. Pt has been resting well. Pain had been slightly better after received 2 pain pills. Left groin drain and wound vac remain inplace. Up in chair this am.
--- NOTE | 2019-06-16 13:16 | NUR ---
ASSUMED CARE OF PATIENT AT 11:00 AFTER GETTING REPORT FROM AUN. PATIENT SITTING UP IN THE CHAIR, ALERT AND ORIENTED. DENIES ANY CONCERNS. VITALS STABLE AND IN ICU WAITING FOR ROOM IN TELE OR REHAB FLOOR.
--- NOTE | 2019-06-16 14:06 | PATH ---
[facility] [address] [place] [address] PATHOLOGY RPT PROCEDURE Name: DEANNA YUSUF Room #: 239-P ADM IN M.R.#: [id number] Admission: 06/14/19 Date of : 49 Discharge: Report #: [id number] Path Case #: [id number] [facility] Accession Number: [id number] . 01 Material submitted: . artery - LEFT FEMORAL ARTERY PLAQUE. Modifiers: left, femoral . 01 Clinical history: . Peripheral vascular disease . 02 Diagnosis: Left femoral artery plaque, endarterectomy: - Fragments of calcific atherosclerosis. - Vessel wall showing myxoid degeneration. . (IUV:mml; 06/15/2019) QLM 06/15/2019 1607 Local . 02 Electronically signed: . Aide Grande MD, Pathologist NPI- [id number] . 01 Gross description: . The specimen is received in formalin, labeled "Deanna Yusuf, left femoral artery plaque", are three previously opened, yellow-mcnamara cylindrical segments ranging from 1.8 cm up to 2.5 cm in greatest dimension and measuring 2.5 x 1.4 x 0.7 cm in aggregate. The wall is fibrotic and friable with the intima showing attached dark brown calcified material. Representatively submitted in A1 after decalcification. ([facility]; 06/14/2019) [facility] 06/14/2019 193 Local . 02 Pathologist provided ICD-10: I70.202 . 02 CPT . 670454, 002199 Specimen Comment: A courtesy copy of this report has been sent to Specimen Comment: [phone], , . Specimen Comment: Report sent to ,DR LEE / DR GARCIA Performed at: [address], [place], [place] [id number] MD Raúl Duncan MD Phone: [phone] Performed at: [address] [id number] MD Aide Grande MD Phone: [phone]
--- NOTE | 2019-06-16 15:24 | NUR ---
CASE DISCUSSSED WITH CTS SID ANG TODAY. DR. PELLETIER FEELS PT WOULD BENEFIT FROM CONTINUED PROVENA WOUND VAC CARE AND STILL HAS SURGICAL DRAIN IN PLACE. REQUESTED 5N REFERRAL. PT WOULD NEED INSURANCE AUTH FOR ACUTE REHAB. DISCUSSED WITH 5N [facility] WHO WILL EVAL FOR APPROPRIATENESS FOR ACUTE REHAB. NO BED ON 5N UNTIL THURSDAY AT PRESENT.
[2019-06-16 16:46] VITALS: BP 110/65
[2019-06-16 19:33] VITALS: BP 114/64
[2019-06-17 01:34] VITALS: BP 117/35
[2019-06-17 05:09] VITALS: BP 112/52
--- NOTE | 2019-06-17 05:54 | NUR ---
PT WAS TRANSFERED OUT TO CCU RM 205, ALERT AND ORIENTED DURING TRANSFER, ALL PT BELONGINGS SENT WITH PATIENT, REPORT GIVEN TO ALIDA WISDOM. WOUND VAC ,MED DRAIN INTACT, PAIN WELL CONTROLLED, IV INTACT AND SALINE LOCK.
[2019-06-17 06:01] VITALS: BP 104/48
[2019-06-17 07:35] VITALS: BP 107/58
--- NOTE | 2019-06-17 07:38 | NUR ---
PT WAS TRANSFERRED TO [facility] FROM ICU. PT IS ALERT AND ORIENTED. NO SIGN OF DISTRESS NOTED. PT IS ON ROOM AIR. PT HAS A WOUND VAC AND MED DRAIN INTACT. VITAL SIGNS STABLE. CONTINUE TO MONITOR PATIENT.
[2019-06-17 09:47] LABS: HEMATOCRIT 35.1 % (37.0-47.0); HEMOGLOBIN 11.5 gm/dL (12.0-15.0); MCH 31.8 pg (26.0-34.0); MCHC 32.8 g/dL (28.0-37.0); MCV 96.9 fL (80.0-100.0); RBC 3.62 mil/uL (4.20-5.00); RDW 15.6 % (10.5-14.5); WBC 12.6 thou/uL (4.0-11.0)
[2019-06-17 11:45] VITALS: BP 106/49
[2019-06-17 15:50] VITALS: BP 104/70
--- NOTE | 2019-06-17 19:41 | NUR ---
RECEIVED PT'S CARE AROUND 1130; PT. AOX4; ON CHAIR; NO C/O PAIN; 0900 NASAL MEDICATION GIVEN; EDUCATED ABOUT FALL PREVENTIONS; ST. UNDERSTANDING; EDUCATED AB0UT THE NEED TO AMBULATE OVER ACOSTA; ST. UNDERSTANDING; REQUESTED TO WALK DURING AFTERNOON; AFIB ON HEART MONITOR; DURING AMBULATION PT'S HR ELEVATED UP TO 130s; MEDICATION GIVEN THROUGH THE DAY; HAD BM; ASSESSMENT CHARGED; FOLLOWING POC; MONITOR; PASSED ON REPORT;
[2019-06-18] VITALS (7 sets, daily range): BP systolic 102–125; BP diastolic 55–93
--- NOTE | 2019-06-18 08:11 | NUR ---
A/O X 4.UP WITH ASSIST WITH THE WALKER TO THE BATHROOM.AMBULATE IN THE HALLWAYS ONCE THIS SHIFT AND WAS TACHYCARDIC.PAIN WELL CONTROLLED.USES CPAP AT NIGHT.AFIB ON THE MONITOR.MED DRAIN INTACT.WOUND VAC DRESSING INTACT.WILL MONITOR AND CONTINUE POC.
[2019-06-18] MEDS ORDERED: ASPIR 8181 MG PO (11:01)
--- NOTE | 2019-06-18 16:46 | NUR ---
RECEIVED PT'S CARE AROUND 0720; PT. ON BED RESTING WITH EYES CLOSED; CHEST RISING; DURING ASSESSMENT PT. C/O PAIN OVER L. GROIN AREA; REFUSED PRN PAIN MEDICATION; EDUCATED ABOUT PAIN MANAGEMENT; ST. UNDERSTANDING; HR ELEVATED WHEN PT. AMBULATES TO BATHROOM; PHYSICIAN NOTIFIED; ORDERS RECEIVED; 130s-150s; AROUND 1100 DR. OLIVARES AT THE BED SIDE; D/C MED DRAIN; PER DR. OLIVARES OK TO D/C PT.; REQUESTED TO NOTIFIED HOSPITALIST; HOSPITALIST NOTIFIED; DUE TO ELEVATED HR CARDIOLOGY CONSULT; PER TAPE RECORDER REPAIRER RESUME BP & HR CONTROL MEDICATION TAKEN AT HOME; MONITORING; EARLY EVENING PT'S HR ON THE 130s WHEN UP TO RESTROOM; NO C/O PALPITATIONS; OR CP; MONITORING; ASSESSMENT CHARGED; FOLLOWING POC; WILL PASS ON REPORT;
[2019-06-19 05:31] VITALS: BP 105/58
[2019-06-19 07:40] VITALS: BP 112/59
--- NOTE | 2019-06-19 09:18 | NUR ---
A/O X 4.FEBRILE.HYDROCODONE GIVEN THEN AFEBRILE THIS MORNING.MONITOR SHOWS AFIB.POC CONTINUED.
[2019-06-19 09:53] VITALS: BP 112/59
--- NOTE | 2019-06-19 10:23 | NUR ---
DRS. PELLETIER, VICKI, AND HOSPITALIST SEE PATIENT; SHE IS TO BE DISCHARGED. WOUND VAC SWITCHED OVER TO PROVENA. WALKED IN HALLWAY TWICE AROUND. AFIB PER TELE. DISCHARGED TO HOME. FOLLOWUP WITH DR. PELLETIER THURSDAY.
[2019-06-22 09:32] VITALS: BP 112/59
--- NOTE | 2019-06-22 12:05 | NUR ---
NOTIFIED TODAY BY STUART AT [facility] THAT THEY DID NOT RECEIVED DC ORDERS WHEN PT DISCHARGED TUESDAY 06/19. FAXED DC ORDERS/SUMMARY RECEIVED CONFIRMATION AND [facility] WILL NOTIFY PT TIME OF VISITS.
--- NOTE | 2019-06-28 13:07 | O ---
[facility] [place] [address] OPERATIVE REPORT Name: GABRIEL YUSUF Room #: 205-P [facility] IN M.R.#: [id number] Admission: 06/14/19 Attend Phys: Ovidio Mckeon MD Discharge: 06/19/19 Date of : 49 Report #: [id number] THIS REPORT FOR: //name// CC: Arya Addison DATE OF SERVICE: 06/14/2019 PREOPERATIVE DIAGNOSIS: Left common femoral artery stenosis. POSTOPERATIVE DIAGNOSIS: Left common femoral artery stenosis. OPERATION: Left femoral artery endarterectomy with a patch closure. SURGEON: Dr. Ovidio Mckeon. METHODS EXAMINER: SID Patrick. ANESTHESIA: General. INDICATIONS: The patient is a 73-year-old seen for Dr. Kaufman. The patient has debilitating claudication and some rest pain in the left foot. Arteriography demonstrates a high-grade blockage in the left common femoral artery. FINDINGS AND TECHNIQUE: After general anesthesia was established, an incision was made in the left groin to expose the common, deep, and superficial femoral arteries. The patient is obese and has a large pannus and we needed to use the Omni-Tract for adequate retraction. 10,000 units of heparin were given. The femoral vessels were occluded. An arteriotomy was made in the common femoral, extending down into the superficial femoral artery. The endarterectomy was performed without creating a distal flap. We needed to extend the endarterectomy into the superficial femoral for some length, as there was a thick calcific plaque that we needed to remove in order to close the vessel. Once the endarterectomy was felt to be satisfactory, tacking sutures were placed at the transition zone at both the superficial femoral and deep femoral extent of the endarterectomy. The arteriotomy was closed with the running Prolene and a thin walled pericardial patch. Prior to finishing the closure, the femoral vessels were backbled. Flow was established first through the deep and then the superficial femoral artery. Protamine was given to reverse the heparin. [facility] [address] [place] [address] OPERATIVE REPORT Name: MADELINGABRIELSALENA GAN Room #: 205-P [facility] IN M.R.#: [id number] Admission: 06/14/19 Attend Phys: Ovidio Mckeon MD Discharge: 06/19/19 Date of : 49 Report #: [id number] When hemostasis was satisfactory, the wounds were closed. A 19-Maori Otto drain was brought out through a separate stab prior to closure. The incision was closed in layers and then a Prevena wound system was applied to the wound. The patient tolerated the procedure well and was taken to the recovery area in good condition. Pulse was palpable in the foot. All counts were reported as correct. <ELECTRONICALLY SIGNED> By: Ovidio Mckeon MD 06/28/19 1307 1503 1542 Ovidio Mckeon MD /nt
== END 2019-06-19 12:15 | disposition home health service (06) | DRG 253 ==
LOC: PRE 07:58 → TBA 06-14 05:47 → ICU 06-14 05:47 → PRE 06-14 09:43 → ICU 06-14 14:09 → 2N 06-17 05:48
PROVIDERS: Hospitalist; Physician Assistant; ADMIT Surgery Vascular Surgery
PROC: 04CL0ZZ Extirpation of Matter from Left Femoral Artery, Open Approach (ICD-10-PCS; principal; 2019-06-14)
PROC: 04UL0KZ Supplement Left Femoral Artery with Nonautologous Tissue Substitute, Open Approach (ICD-10-PCS; principal; 2019-06-14)
PROC: 5A09357 Assistance with Respiratory Ventilation, Less than 24 Consecutive Hours, Continuous Positive Airway Pressure (ICD-10-PCS; 2019-06-14)
PROC: 5A09357 Assistance with Respiratory Ventilation, Less than 24 Consecutive Hours, Continuous Positive Airway Pressure (ICD-10-PCS; 2019-06-15)
PROC: 5A09357 Assistance with Respiratory Ventilation, Less than 24 Consecutive Hours, Continuous Positive Airway Pressure (ICD-10-PCS; 2019-06-17)
PROC: 5A09357 Assistance with Respiratory Ventilation, Less than 24 Consecutive Hours, Continuous Positive Airway Pressure (ICD-10-PCS; 2019-06-18)
DX: I73.9 Peripheral vascular disease, unspecified (principal); N17.9 Acute kidney failure, unspecified; I13.0 Hypertensive heart and chronic kidney disease with heart failure and stage 1 through stage 4 chronic kidney disease, or unspecified chronic kidney disease; I48.21 Permanent atrial fibrillation; E78.5 Hyperlipidemia, unspecified; I50.9 Heart failure, unspecified; G47.33 Obstructive sleep apnea (adult) (pediatric); I25.10 Atherosclerotic heart disease of native coronary artery without angina pectoris; E87.5 Hyperkalemia; N18.9 Chronic kidney disease, unspecified; F32.9 Major depressive disorder, single episode, unspecified; I27.20 Pulmonary hypertension, unspecified; I25.5 Ischemic cardiomyopathy; Z60.2 Problems related to living alone; M19.90 Unspecified osteoarthritis, unspecified site; E87.6 Hypokalemia; I08.1 Rheumatic disorders of both mitral and tricuspid valves; Z99.81 Dependence on supplemental oxygen; Z88.2 Allergy status to sulfonamides; Z88.8 Allergy status to other drugs, medicaments and biological substances; Z85.828 Personal history of other malignant neoplasm of skin; I25.2 Old myocardial infarction; Z86.14 Personal history of Methicillin resistant Staphylococcus aureus infection; Z87.891 Personal history of nicotine dependence; Z98.49 Cataract extraction status, unspecified eye
CPT/HCPCS: 10078; 10081; 10203; 47375; 48888; 50010; 50101; 50386; 50455; 50643; 50953; 51751; 52279; 53358; 56524; 56526; 56527; 56528; 56531; 56534; 56668; 56760; 57092; 57093; 62110; 62900; 65040; 70005

== ENCOUNTER → 2020-05-28 | Outpatient (CLI) | payer OTHER | LOC: SJCVC 10:40 | PROVIDERS: ATTEND Internal Medicine Cardiovascular Disease | DX: Z45.02 Encounter for adjustment and management of automatic implantable cardiac defibrillator (principal); I25.10 Atherosclerotic heart disease of native coronary artery without angina pectoris; I34.0 Nonrheumatic mitral (valve) insufficiency; E78.00 Pure hypercholesterolemia, unspecified; I25.5 Ischemic cardiomyopathy; I65.23 Occlusion and stenosis of bilateral carotid arteries; I48.21 Permanent atrial fibrillation; I50.9 Heart failure, unspecified; D68.59 Other primary thrombophilia; I73.9 Peripheral vascular disease, unspecified; M10.9 Gout, unspecified; Z79.82 Long term (current) use of aspirin; Z79.899 Other long term (current) drug therapy; Z82.49 Family history of ischemic heart disease and other diseases of the circulatory system; Z87.891 Personal history of nicotine dependence; Z95.810 Presence of automatic (implantable) cardiac defibrillator ==

== ENCOUNTER → 2020-11-27 | Outpatient (CLI) | payer OTHER | LOC: SJCVCIMAG 09:36 | PROVIDERS: ATTEND Internal Medicine Cardiovascular Disease | DX: I08.3 Combined rheumatic disorders of mitral, aortic and tricuspid valves (principal); I27.20 Pulmonary hypertension, unspecified; I70.203 Unspecified atherosclerosis of native arteries of extremities, bilateral legs; R94.31 Abnormal electrocardiogram [ECG] [EKG]; I25.10 Atherosclerotic heart disease of native coronary artery without angina pectoris; I48.21 Permanent atrial fibrillation; I77.9 Disorder of arteries and arterioles, unspecified; E78.00 Pure hypercholesterolemia, unspecified; I11.0 Hypertensive heart disease with heart failure; I50.9 Heart failure, unspecified; M10.9 Gout, unspecified; G47.33 Obstructive sleep apnea (adult) (pediatric); Z95.810 Presence of automatic (implantable) cardiac defibrillator; Z95.1 Presence of aortocoronary bypass graft; Z98.890 Other specified postprocedural states; Z88.8 Allergy status to other drugs, medicaments and biological substances; Z79.82 Long term (current) use of aspirin; Z79.899 Other long term (current) drug therapy; Z87.891 Personal history of nicotine dependence; Z82.49 Family history of ischemic heart disease and other diseases of the circulatory system ==

== ENCOUNTER → 2021-06-05 | Outpatient (CLI) | payer OTHER | LOC: SJCVC 10:57 | PROVIDERS: ATTEND Internal Medicine Cardiovascular Disease | DX: R94.31 Abnormal electrocardiogram [ECG] [EKG] (principal); I48.91 Unspecified atrial fibrillation; I13.0 Hypertensive heart and chronic kidney disease with heart failure and stage 1 through stage 4 chronic kidney disease, or unspecified chronic kidney disease; N18.9 Chronic kidney disease, unspecified; I50.9 Heart failure, unspecified; I25.10 Atherosclerotic heart disease of native coronary artery without angina pectoris; E78.00 Pure hypercholesterolemia, unspecified; I77.9 Disorder of arteries and arterioles, unspecified; I25.5 Ischemic cardiomyopathy; I73.9 Peripheral vascular disease, unspecified; I34.0 Nonrheumatic mitral (valve) insufficiency; I65.23 Occlusion and stenosis of bilateral carotid arteries; D64.9 Anemia, unspecified; F41.9 Anxiety disorder, unspecified; M19.90 Unspecified osteoarthritis, unspecified site; K21.9 Gastro-esophageal reflux disease without esophagitis; M10.9 Gout, unspecified; M81.0 Age-related osteoporosis without current pathological fracture; E66.9 Obesity, unspecified; G47.33 Obstructive sleep apnea (adult) (pediatric); I07.1 Rheumatic tricuspid insufficiency; Z87.891 Personal history of nicotine dependence; Z79.82 Long term (current) use of aspirin; Z79.899 Other long term (current) drug therapy; Z72.89 Other problems related to lifestyle; Z88.2 Allergy status to sulfonamides; Z88.8 Allergy status to other drugs, medicaments and biological substances ==

== ENCOUNTER → 2021-10-21 | Outpatient (CLI) | payer OTHER | LOC: RAD 08:23 | PROVIDERS: ATTEND Pediatrics | DX: I27.24 Chronic thromboembolic pulmonary hypertension (principal); J98.4 Other disorders of lung ==